=== PATIENT | female | born 1965 | race American Indian/Alaskan Native ===

== ENCOUNTER 2016-09-01 07:36 | Outpatient (CLI) | payer BC ==
--- NOTE | 2016-09-01 10:07 | Echocardiography Report ---
Transthoracic Echocardiogram Indication: Palpitations BP: 97/67 HR: 75 Findings Procedure Info: The study quality is fair. Left Ventricle: The left ventricular chamber size is normal. Mild concentric left ventricular hypertrophy is observed. Global left ventricular wall motion and contractility are within normal limits. Global left ventricular systolic function is normal. The estimated ejection fraction is 55-60%. Abnormal left ventricular diastolic function is observed. Abnormal left ventricular diastolic filling is observed, consistent with impaired relaxation. Left Atrium: The left atrial chamber size is normal. Right Ventricle: The right ventricular cavity size is normal. The right ventricular global systolic function is normal. Right Atrium: The right atrial cavity size is normal. Aortic Valve: The aortic valve is trileaflet. The aortic valve leaflets are mildly thickened. Systolic excursion of the aortic valve is normal. There is no evidence of aortic regurgitation. There is no evidence of aortic stenosis. Mitral Valve: The mitral valve is not well visualized. The mitral valve leaflets appear myxomatous. The mitral valve leaflets are mildly thickened. There is trace of mitral regurgitation. There is no evidence of mitral stenosis. Tricuspid Valve: The tricuspid valve is not well visualized. There is trace tricuspid regurgitation. No pulmonary hypertension is noted. There is no tricuspid stenosis. Pulmonic Valve: The pulmonic valve is not well visualized. There is mild pulmonic regurgitation. There is no pulmonic stenosis. Pericardium: There is no pericardial effusion. No pleural effusion is present. Aorta: There is no dilatation of the ascending aorta. There is no dilatation of the aortic root. Venous: The inferior vena cava appears normal in size. There is a greater than 50% respiratory change in the inferior vena cava dimension. Measurements Chambers 2D Name Value Normal Range IVSd (2D) 0.93 cm (0.6 - 1.1) LVPWd 1 cm - LVPWd (2D) 1 cm (0.6 - 1.1) IVS:LVPW ratio (2D) 0.93 ratio - LVIDd 4.2 cm - LVIDs 3 cm - LVIDd (2D) 4.24 cm (3.7 - 5.6) LVIDs (2D) 3.02 cm (2 - 3.8) LV FS (Teichholz) (2D) 28.8 % - LV FS (cube) (2D) 28.8 % - LV EF (2D) 55 % - EF Teichholz (2D) 55.7 % - LA dimension 3.4 cm - Ao root diameter (2D) 2.6 cm (2 - 3.7) LA dimension (AP) 2D 3.4 cm (1.9 - 4) LA:Ao ratio (2D) 1.31 ratio - Volumes/Mass Name Value Normal Range LA ESV SP 4CH (MOD) 36 ml - LV EDV SP 4CH (MOD) 90 ml - LV ESV SP 4CH (MOD) 35 ml - EF SP 4CH (MOD) 61 % - Diastolic/Systolic Function Name Value Normal Range MV E-wave Vmax 0.55 m/sec - MV deceleration time 261 msec - MV A-wave Vmax 0.77 m/sec - MV E:A ratio 0.7 ratio - LV septal e' Vmax 0.09 m/sec - LV lateral e' Vmax 0.12 m/sec - LV E:e' septal ratio 6.4 ratio - LV E:e' lateral ratio 4.5 ratio - Aortic Valve Name Value Normal Range AV Vmax 1.57 m/sec - AV peak gradient 10 mmHg - LVOT diameter 1.8 cm - LVOT Vmax 1 m/sec - LVOT peak gradient 4 mmHg - BUD (continuity Vmax) 1.61 cm2 - Tricuspid Valve Name Value Normal Range TR Vmax 2.01 m/sec - TR peak gradient 16 mmHg - Pulmonic Valve/Qp:Qs Name Value Normal Range PV Vmax 0.78 m/sec - PV peak gradient 2 mmHg - MT end-diastolic Vmax 0.72 m/sec - PV acceleration time 166 msec -
--- NOTE | 2016-09-01 13:18 | Treadmill Report ---
The patient exercised for 8 minutes and 30 seconds of a Toñito protocol, reaching stage 3 and achieving 9.5 mets. Peak heart rate was 146 beats per minute. Peak blood pressure was 152/82. There was no chest pain. Test was stopped for fatigue. Baseline ECG was normal sinus rhythm. With exercise, there were no ST changes of ischemia. No significant dysrhythmias were noted. CONCLUSION: 1. Very good exercise capacity. 2. No chest pain. 3. No ST changes of ischemia. 4. No significant dysrhythmias. 5. Normal exercise ECG test. JOB# [id number] CA/NTS
== END 2016-09-01 07:37 | disposition home or self-care (01) ==
LOC: CARD 07:36
PROVIDERS: ATTEND Internal Medicine Cardiovascular Disease
DX: R00.2 Palpitations (principal)
CPT/HCPCS: 93017; 93306

== ENCOUNTER 2017-04-05 12:50 | Outpatient (CLI) | payer BC ==
--- NOTE | 2017-04-06 17:07 | Vascular Lab Report ---
Left Lower Extremity Venous Duplex Study: Reason for Exam: Pain and swelling of the left lower extremity. Comments on the Right: A limited duplex study was done of the proximal veins of the right lower extremity. All veins visualized are freely compressible without evidence of internal echogenicity. Flow is spontaneous and phasic throughout. No evidence of acute or chronic thrombus is seen in any of the vessels visualized. Comments on the Left: All veins visualized are freely compressible without evidence of internal echogenicity. Flow is spontaneous and phasic throughout. No evidence of acute or chronic thrombus is seen in any of the vessels visualized. Superficial thrombophlebitis noted in the distal greater saphenous vein. Impression: No evidence of acute or chronic deep venous thrombosis in the left lower extremity. Superficial thrombophlebitis in the left lower extremity
== END 2017-04-05 12:51 | disposition home or self-care (01) ==
LOC: VAS 12:50
PROVIDERS: ATTEND Physician Assistant Medical
DX: I80.02 Phlebitis and thrombophlebitis of superficial vessels of left lower extremity (principal)

== ENCOUNTER 2017-04-17 10:21 | Outpatient (CLI) | payer BC ==
--- NOTE | 2017-04-17 11:18 | Cat Scan Report ---
CT CHEST WITHOUT CONTRAST: HISTORY: Chronic cough. TECHNIQUE: Helical CT with sagittal and coronal reformatted images. FINDINGS: Heart size is normal. There is no evidence of adenopathy within the mediastinum. Pulmonary jocelynn are free of any mass and the lungs are clear of infiltrates. The pleura is unremarkable. No masses involve the chest wall. No abnormalities are noted within the upper abdomen. The adrenal glands are normal. IMPRESSION: Unremarkable noncontrast CT chest.
== END 2017-04-17 10:22 | disposition home or self-care (01) ==
LOC: CT 10:21
DX: R05 Cough (principal)
CPT/HCPCS: 71250

== ENCOUNTER 2017-05-31 10:11 | Outpatient (CLI) | payer BC ==
--- NOTE | 2017-05-31 11:13 | Cat Scan Report ---
CT scan of head without IV contrast: History: Recurrent headaches. Findings: Ventricles are normal in size and midline in location. No evidence of acute ischemia, hemorrhage or mass. No extra-axial fluid collection. Normal brainstem and cerebellum. Impression: No acute intracranial abnormality.
== END 2017-05-31 10:12 | disposition home or self-care (01) ==
LOC: CT 10:11
PROVIDERS: ATTEND Internal Medicine
DX: R51 Headache (principal)
CPT/HCPCS: 70450

== ENCOUNTER 2017-07-12 06:06 | Inpatient (IN) | payer BC ==
[2017-07-12 07:38] LABS: Eosinophils % (Auto) 4.7 % (0.0-4.3); Hematocrit 39.2 % (30.3-42.9); Hemoglobin 13.2 gm/dl (10.1-14.3); Mean Corpuscular HGB Conc 34 % (30-34); Mean Corpuscular Hemoglobin 27 pg (28-32); Mean Corpuscular Volume 80 fl (79-97); Platelet Count 303 K/mm3 (140-440); Red Blood Count 4.89 M/mm3 (3.65-5.03); Red Cell Distribution Width 14.7 % (13.2-15.2); White Blood Count 8.1 K/mm3 (4.5-11.0)
[2017-07-12 07:49] LABS: Bilirubin,Urine NEG (Negative); Blood,Urine NEG (Negative); Ketones,Urine NEG (Negative); Leukocyte Esterase,Urine NEG (Negative); Mucus,Urine FEW /HPF; Nitrite,Urine NEG (Negative); Protein,Urine <15 mg/dL mg/dL (Negative); Urobilinogen,Urine < 2.0 mg/dL (<2.0); WBC,Urine < 1.0 /HPF (0.0-6.0)
[2017-07-12 07:50] LABS: Anion Gap 18 mmol/L; BUN/Creatinine Ratio 15; Blood Urea Nitrogen 12 mg/dL (7-17); Calcium 9.1 mg/dL (8.4-10.2); Carbon Dioxide 24 mmol/L (22-30); Glucose 101 mg/dL (65-100); Sodium 139 mmol/L (137-145)
--- NOTE | 2017-07-12 07:58 | Cat Scan Report ---
CT HEAD WITHOUT CONTRAST: HISTORY: Headache. TECHNIQUE: Sequential 2.5mm CT images. COMPARISON: none. FINDINGS: Cerebral Parenchyma: Within normal limits. Cerebellum: Within normal limits. Brainstem: Within normal limits. Ventricles: Normal. Sella: Normal. Extra-axial spaces: Normal. Basal Cisterns: Normal. Intracranial Hemorrhage: None. Midline Shift: None. Calvarium: Normal. Sinuses: Normal. Mastoid Air Cells: Normal. Visualized Orbits: Normal. IMPRESSION: Cranial CT scan within normal limits. No significant change since 05/31/17.
[2017-07-12] MEDS ORDERED: BABY ASPIRIN PO ONE (10:26)
--- NOTE | 2017-07-12 10:26 | Emergency Department Report ---
ED General Adult HPI - General Chief complaint: Chest Pain Stated complaint: POSSIBLE HTN Time Seen by Provider: 07/12/17 10:18 Source: patient, RN notes reviewed Mode of arrival: Ambulatory Limitations: No Limitations - History of Present Illness Initial comments: This is a 52-year-old female who was previously unknown to this provider. She thinks that she might have a past medical history of hypertension but is not certain. She presents to the ER with 2 complaints. Her first complaint is left-sided chest wall pain. The pain is achy, increases with palpation and range of motion. It decreases with rest. There is no vomiting, diaphoresis. No pulmonary embolus or DVT risk factors. The patient's next complaint is left-sided facial droop, left upper extremity weakness/numbness. This resolved prior to my evaluation. She also complains of left-sided headache. Headache is throbbing, not sudden or thunderclap in nature, did not reach maximal intensity within an hour, it is not the worse headache of her life. -: Gradual Location: head, chest Radiation: extremity Severity scale (0 -10): 7 Consistency: intermittent Improves with: none Worsens with: none Associated Symptoms: chest pain, headaches. denies: confusion - Related Data Home Medications Medication Instructions Recorded Confirmed Last Taken Metoprolol [Lopressor TAB] 50 mg PO BID 07/12/17 07/12/17 07/12/17 Multivitamin with Folic Acid [One 400 mcg PO DAILY 07/12/17 07/12/17 07/12/17 Daily Multivitamin Tablet] Allergies Allergy/AdvReac Type Severity Reaction Status Date / Time No Known Allergies Allergy Verified 07/12/17 10:18 ED Review of Systems ROS: Stated complaint: POSSIBLE HTN Other details as noted in HPI Constitutional: denies: malaise Eyes: denies: eye discharge ENT: denies: epistaxis Respiratory: denies: cough Cardiovascular: chest pain Gastrointestinal: denies: abdominal pain Genitourinary: as per HPI Skin: as per HPI Neurological: headache, numbness Psychiatric: as per HPI ED Past Medical Hx - Past Medical History Hx Hypertension: Yes Hx Diabetes: Yes Hx Kidney Stones: Yes - Surgical History Past Surgical History?: Yes Additional Surgical History: TUBALIGATION - Social History Smoking Status: Never Smoker Substance Use Type: None - Medications Home Medications: Home Medications Medication Instructions Recorded Confirmed Last Taken Type Metoprolol [Lopressor TAB] 50 mg PO BID 07/12/17 07/12/17 07/12/17 History Multivitamin with Folic Acid [One 400 mcg PO DAILY 07/12/17 07/12/17 07/12/17 History Daily Multivitamin Tablet] ED Physical Exam - General Limitations: No Limitations General appearance: alert, in no apparent distress - Head Head exam: Present: atraumatic, normocephalic - Eye Eye exam: Present: normal appearance, PERRL, EOMI, other (visual acuity intact to finger counting, color perception, reading at a close distance). Absent: nystagmus - ENT ENT exam: Present: normal exam, normal orophraynx, mucous membranes moist, normal external ear exam - Neck Neck exam: Present: normal inspection, full ROM. Absent: tenderness, meningismus, lymphadenopathy - Respiratory Respiratory exam: Present: normal lung sounds bilaterally. Absent: respiratory distress - Cardiovascular Cardiovascular Exam: Present: regular rate, normal rhythm, normal heart sounds. Absent: systolic murmur, diastolic murmur, rubs, gallop - GI/Abdominal GI/Abdominal exam: Present: soft, normal bowel sounds. Absent: distended, tenderness, guarding, rebound, rigid, pulsatile mass - Extremities Exam Extremities exam: Present: normal inspection, full ROM, normal capillary refill. Absent: pedal edema, joint swelling, calf tenderness - Back Exam Back exam: Present: normal inspection, full ROM. Absent: tenderness, CVA tenderness (R), paraspinal tenderness, vertebral tenderness - Neurological Exam Neurological exam: Present: alert, oriented X3, CN II-XII intact, normal gait, other (Extraocular movements intact. Tongue midline. No facial droop. Facial sensation intact to light touch in the V1, V2, V3 distribution bilaterally. 5 and 5 strength in 4 extremities.. Sensation is intact to light touch in 4 extremities.). Absent: motor sensory deficit - Psychiatric Psychiatric exam: Present: normal affect, normal mood - Skin Skin exam: Present: warm, dry, intact, normal color. Absent: rash ED Course Vital Signs 07/12/17 07/12/17 07/12/17 06:11 06:16 10:22 Temperature 98 F 98 F Pulse Rate 82 82 78 Respiratory 18 18 16 Rate Blood Pressure 156/94 Blood Pressure 156/94 135/81 [Right] O2 Sat by Pulse 100 100 96 Oximetry 12/06/17 12/06/17 11:39 13:28 Temperature Pulse Rate 76 67 Respiratory 16 16 Rate Blood Pressure Blood Pressure 142/82 125/87 [Right] O2 Sat by Pulse 95 100 Oximetry ED Medical Decision Making - Lab Data Result diagrams: 07/12/17 07:23 07/12/17 07:20 Vital Signs 07/12/17 07/12/17 07/12/17 06:11 06:16 10:22 Temperature 98 F 98 F Pulse Rate 82 82 78 Respiratory 18 18 16 Rate Blood Pressure 156/94 Blood Pressure 156/94 135/81 [Right] O2 Sat by Pulse 100 100 96 Oximetry 07/12/17 07/12/17 11:39 13:28 Temperature Pulse Rate 76 67 Respiratory 16 16 Rate Blood Pressure Blood Pressure 142/82 125/87 [Right] O2 Sat by Pulse 95 100 Oximetry Lab Results 07/12/17 07/12/17 07/12/17 Range/Units 07:19 07:20 07:23 WBC 8.1 (4.5-11.0) K/mm3 RBC 4.89 (3.65-5.03) M/mm3 Hgb 13.2 (10.1-14.3) gm/dl Hct 39.2 (30.3-42.9) % MCV 80 (79-97) fl MCH 27 L (28-32) pg MCHC 34 (30-34) % RDW 14.7 (13.2-15.2) % Plt Count 303 (140-440) K/mm3 Lymph % (Auto) 31.7 (13.4-35.0) % [place] % (Auto) 6.5 (0.0-7.3) % Eos % (Auto) 4.7 H (0.0-4.3) % Baso % (Auto) 1.0 (0.0-1.8) % Lymph # 2.6 (1.2-5.4) K/mm3 [place] # 0.5 (0.0-0.8) K/mm3 Eos # 0.4 (0.0-0.4) K/mm3 Baso # 0.1 (0.0-0.1) K/mm3 Seg Neutrophils % 56.1 (40.0-70.0) % Seg Neutrophils # 4.5 (1.8-7.7) K/mm3 Sodium 139 (137-145) mmol/L Potassium 4.0 (3.6-5.0) mmol/L Chloride 101.0 (98-107) mmol/L Carbon Dioxide 24 (22-30) mmol/L Anion Gap 18 mmol/L BUN 12 (7-17) mg/dL Creatinine 0.8 (0.7-1.2) mg/dL Estimated GFR > 60 ml/min BUN/Creatinine Ratio 15 % Glucose 101 H (65-100) mg/dL Calcium 9.1 (8.4-10.2) mg/dL Troponin T < 0.010 (0.00-0.029) ng/mL Urine Color Yellow (Yellow) Urine Turbidity Clear (Clear) Urine pH 6.0 (5.0-7.0) Ur Specific [place] 1.008 (1.003-1.030) Urine Protein <15 mg/dl (Negative) mg/dL Urine Glucose (UA) Neg (Negative) mg/dL Urine Ketones Neg (Negative) mg/dL Urine Blood Neg (Negative) Urine Nitrite Neg (Negative) Urine Bilirubin Neg (Negative) Urine Urobilinogen < 2.0 (<2.0) mg/dL Ur Leukocyte Esterase Neg (Negative) Urine WBC (Auto) < 1.0 (0.0-6.0) /HPF Urine RBC (Auto) 1.0 (0.0-6.0) /HPF U Epithel Cells (Auto) 2.0 (0-13.0) /HPF Urine Mucus Few /HPF 07/12/17 07/12/17 Range/Units 09:33 13:18 WBC (4.5-11.0) K/mm3 RBC (3.65-5.03) M/mm3 Hgb (10.1-14.3) gm/dl Hct (30.3-42.9) % MCV (79-97) fl MCH (28-32) pg MCHC (30-34) % RDW (13.2-15.2) % Plt Count (140-440) K/mm3 Lymph % (Auto) (13.4-35.0) % [place] % (Auto) (0.0-7.3) % Eos % (Auto) (0.0-4.3) % Baso % (Auto) (0.0-1.8) % Lymph # (1.2-5.4) K/mm3 [place] # (0.0-0.8) K/mm3 Eos # (0.0-0.4) K/mm3 Baso # (0.0-0.1) K/mm3 Seg Neutrophils % (40.0-70.0) % Seg Neutrophils # (1.8-7.7) K/mm3 Sodium (137-145) mmol/L Potassium (3.6-5.0) mmol/L Chloride (98-107) mmol/L Carbon Dioxide (22-30) mmol/L Anion Gap mmol/L BUN (7-17) mg/dL Creatinine (0.7-1.2) mg/dL Estimated GFR ml/min BUN/Creatinine Ratio % Glucose (65-100) mg/dL Calcium (8.4-10.2) mg/dL Troponin T < 0.010 < 0.010 (0.00-0.029) ng/mL Urine Color (Yellow) Urine Turbidity (Clear) Urine pH (5.0-7.0) Ur Specific [place] (1.003-1.030) Urine Protein (Negative) mg/dL Urine Glucose (UA) (Negative) mg/dL Urine Ketones (Negative) mg/dL Urine Blood (Negative) Urine Nitrite (Negative) Urine Bilirubin (Negative) Urine Urobilinogen (<2.0) mg/dL Ur Leukocyte Esterase (Negative) Urine WBC (Auto) (0.0-6.0) /HPF Urine RBC (Auto) (0.0-6.0) /HPF U Epithel Cells (Auto) (0-13.0) /HPF Urine Mucus /HPF - EKG Data -: EKG Interpreted by Co - EKG Data 07/12/17 14:13 Sinus, 72 bpm, normal axis, QTC within normal limits, possible atrial enlargement, MA slightly prolonged, abnormal EKG, not morphologically consistent with ST elevation myocardial infarction - Radiology Data Radiology results: report reviewed, image reviewed X-ray of the chest is negative for acute disease, noncontrast CT scan of the brain is Shows no acute findings. - Medical Decision Making Differential diagnosis, including but not limited to: Migraine headache, tension headache, cluster headache, acute coronary syndrome, cervical radiculopathy, pneumonia, GERD, gastritis Assessment and plan: 52-year-old female with neurologic symptoms which have since resolved, has an NIH score of 0 and a GCS of 15. Also has atypical chest pain. No pulmonary embolus or DVT risk factors, low risk by well's criteria, low risk by cornell score, low risk by heart score. Patient walking around the ER without distress, and speaking to family without distress. X-ray of the chest unremarkable, pulses within normal limits bilaterally, not especially hypertensive, therefore think aortic catastrophe is very unlikely. Patient will be admitted to the hospital for acute coronary syndrome risk stratification , and TIA evaluation. She is given aspirin, and the Hospital physician, Dr. Barnes accepted the patient to the medical service. Critical care attestation.: If time is entered above; I have spent that time in minutes in the direct care of this critically ill patient, excluding procedure time. ED Disposition Clinical Impression: TIA (transient ischemic attack), Chest pain Disposition: OP ADMIT IP TO THIS HOSP Is pt being admited?: Yes Does the pt Need Aspirin: Yes Condition: Good Instructions: Chest Pain (ED) Referrals: PRIMARY CARE, [Primary Care Provider] - 3-5 Days
--- NOTE | 2017-07-12 11:44 | XRay Report ---
AP CHEST: HISTORY: chest pain AP view of the chest demonstrates a normal mediastinal and cardiac contour with clear lungs and normal bony and soft tissue structures. IMPRESSION: Unremarkable AP chest.
--- NOTE | 2017-07-12 13:22 | History and Physical Report ---
History of Present Illness Chief complaint: My chest hurts History of present illness: 52 YO Female with HTN, DM, MO, Nephrolithiasis presents to ED for evaluation. Pt states that she has experienced pain in her chest. Pain is 7/10, substernal, intermittent, worsened with chest palpation and range of motion, not worsened with exertion, but is relieved with rest. Pt also states that when she awoke from sleep this morning, the left side of her face felt numb, and her left arm felt weak and numb. Pt also acknowledges left sided headache. Pt states that symptoms resolved in less than 1 hour. Pt denies fever, chills, Palpitations, NVD, syncope,Trauma, Seizures, Vertigo, BRBPR, Skin Rash, productive cough, unintentional weight loss, night sweats, or recent ill contacts. Pt seen and evaluated in ED and found to have symptoms consistent with ACS as well as TIA. Pt admitted to telemetry. Past History Past Medical History: diabetes, hypertension, other (Nephrolithiasis, Morbid Obesity) Past Surgical History: Other (tubal ligation) Social history: . denies: smoking, alcohol abuse, prescription drug abuse, IV drug use Family history: diabetes, hypertension Medications and Allergies Allergies Allergy/AdvReac Type Severity Reaction Status Date / Time No Known Allergies Allergy Verified 07/12/17 10:18 Home Medications Medication Instructions Recorded Confirmed Last Taken Type Metoprolol [Lopressor TAB] 50 mg PO BID 07/12/17 07/12/17 07/12/17 History Multivitamin with Folic Acid [One 400 mcg PO DAILY 07/12/17 07/12/17 07/12/17 History Daily Multivitamin Tablet] Review of Systems Constitutional: no weight loss, no weight gain, no fever, no chills, no sweats Ears, nose, mouth and throat: no ear pain, no ear discharge, no tinnitis, no decreased hearing, no nose pain, no nasal congestion, no nasal discharge Breasts: no change in shape, no swelling, no mass Cardiovascular: chest pain, no palpitations, no rapid/irregular heart beat, no edema, no syncope Respiratory: no cough, no cough with sputum, no excessive sputum, no hemoptysis Gastrointestinal: no abdominal pain, no nausea, no vomiting, no diarrhea Genitourinary Female: no pelvic pain, no flank pain, no dysuria, no urinary frequency, no urgency Rectal: no pain, no incontinence, no bleeding Musculoskeletal: no neck stiffness, no neck pain, no shooting arm pain, no arm numbness/tingling, no low back pain, no shooting leg pain Integumentary: no rash, no pruritis, no redness, no sores, no jaundice, no boils Neurological: paralysis, weakness, parathesias, numbness, no head injury, no transient paralysis, no seizures, no syncope, no tremors, no ataxia Psychiatric: no anxiety, no memory loss, no change in sleep habits, no sleep disturbances, no insomnia, no hypersomnia, no change in appetite Endocrine: no cold intolerance, no heat intolerance, no polyphagia, no excessive thirst, no polydipsia, no nocturia Hematologic/Lymphatic: no easy bruising, no easy bleeding Allergic/Immunologic: no urticaria, no allergic rhinitis, no wheezing Exam - Constitutional Vitals: Temp Pulse Resp BP Pulse Ox 98 F 76 16 142/82 95 07/12/17 06:16 07/12/17 11:39 07/12/17 11:39 07/12/17 11:39 07/12/17 11:39 General appearance: Present: mild distress, obese - EENT Eyes: Present: PERRL ENT: hearing intact, clear oral mucosa - Neck Neck: Present: supple, normal ROM - Respiratory Respiratory effort: normal Respiratory: bilateral: CTA - Cardiovascular Heart Sounds: Present: S1 & S2. Absent: rub, click - Extremities Extremities: pulses symmetrical, No edema Peripheral Pulses: within normal limits - Abdominal General gastrointestinal: Present: soft, non-tender, non-distended, normal bowel sounds Female genitourinary: Present: normal - Integumentary Integumentary: Present: clear, warm, dry - Musculoskeletal Musculoskeletal: gait normal, strength equal bilaterally - Psychiatric Psychiatric: appropriate mood/affect, intact judgment & insight - Neurologic Neurologic: CNII-XII intact, moves all extremities Results - Labs CBC & Chem 7: 07/12/17 07:23 07/12/17 13:18 Labs: Abnormal lab results 07/12/17 07/12/17 Range/Units 07:20 07:23 MCH 27 L (28-32) pg Eos % (Auto) 4.7 H (0.0-4.3) % Glucose 101 H (65-100) mg/dL Assessment and Plan - Patient Problems (1) ACS (acute coronary syndrome) Current Visit: Yes Status: Acute Plan to address problem: Serial cardiac enzymes, ekg, telemetry, morphine, supplemental oxygen, nitro tabs, aspirin, cardiology consulted, Pt underwent Echo and stress test in 08/23. (2) Metabolic syndrome Current Visit: Yes Status: Acute Plan to address problem: Lipid panel, low cholesterol diet, (3) Diabetes Current Visit: Yes Status: Acute Plan to address problem: ADA diet, insulin, accu check (4) Accelerated hypertension Current Visit: Yes Status: Acute Plan to address problem: Monitor bp q shift, continue medical management (5) TIA (transient ischemic attack) Current Visit: Yes Status: Acute Plan to address problem: CT Head, MRI Brain, MRA Brain, antiplatelet therapy. (6) DVT prophylaxis Current Visit: Yes Status: Acute
[2017-07-12] MEDS ORDERED: ZOFRAN IV PRN ×2 (13:25→15:46)
[2017-07-12] MEDS ORDERED: MILK OF MAGNESIA PO PRN ×2 (13:25→15:46)
[2017-07-12] MEDS ORDERED: TYLENOL PO PRN ×2 (13:25→15:46)
[2017-07-12] MEDS ORDERED: SODIUM CHLORIDE FLUSH SYRINGE 10 ML IV PRN ×2 (13:25→15:46)
[2017-07-12] MEDS ORDERED: DULCOLAX PR PRN ×2 (13:25→15:46)
[2017-07-12] MEDS ORDERED: MORPHINE IV PRN (13:25)
[2017-07-12] MEDS ORDERED: NITROSTAT SL PRN (13:25)
[2017-07-12] MEDS ORDERED: PROVENTIL IH PRN (13:25)
[2017-07-12 14:27] LABS: Anion Gap 18 mmol/L; BUN/Creatinine Ratio 19; Blood Urea Nitrogen 13 mg/dL (7-17); Calcium 8.9 mg/dL (8.4-10.2); Carbon Dioxide 26 mmol/L (22-30); Chloride 100.5 mmol/L (98-107); Glucose 93 mg/dL (65-100); Potassium 3.9 mmol/L (3.6-5.0); Sodium 141 mmol/L (137-145)
[2017-07-12] MEDS ORDERED: PHENERGAN PR PRN (15:46)
[2017-07-12] MEDS ORDERED: REGLAN PO PRN (15:46)
[2017-07-12] MEDS ORDERED: PEPCID PO SCH (22:00)
[2017-07-12] MEDS ORDERED: LOPRESSOR PO SCH (22:00)
[2017-07-13] MEDS ORDERED: PNEUMOVAX 23 IM ONE (12:00)
--- NOTE | 2017-07-13 12:55 | Magnetic Resonance Report ---
MRI BRAIN WITHOUT CONTRAST: 07/12/17 13:25:00 CLINICAL: Stroke. TECHNIQUE: Axial diffusion, T1, T2, FLAIR, gradient echo T2*, and sagittal T1 sequences on a 1.5 Jeri magnet. FINDINGS: Normal ventricles and sulci. No restricted diffusion. Moderate bilateral periventricular and subcortical multifocal white matter hyperintensities on FLAIR and T2. No mass or mass effect. No hemorrhage, edema or extra-axial collection. Normal pituitary and optic chiasm. The brainstem and cerebellum are normal. Intact vascular flow voids. Normal sinuses. The orbits, and soft tissues are normal. Normal calvarium and skull base. IMPRESSION: No evidence of acute/subacute infarct or hemorrhage. Moderate chronic white matter microangiopathy.
--- NOTE | 2017-07-13 12:57 | Magnetic Resonance Report ---
MRA HEAD WITHOUT CONTRAST: 07/13/17 CLINICAL: Stroke. TECHNIQUE: Axial 3-D [id number] MR angiography of the [place] of [place] with review of axial source images. FINDINGS: Intact [place] with no aneurysm, stenosis or occlusion. Symmetric blood flow in the anterior, middle and posterior cerebral arteries. Normal basilar and vertebral arteries. IMPRESSION: Normal study.
--- NOTE | 2017-07-13 15:35 | Discharge Summary ---
Providers - Providers Date of Admission: 07/12/17 13:25 Date of discharge: 07/13/17 Attending physician: CURT ORELLANA 07/12/17 Consult to Cardiac Rehabilitation [CONS] Routine Reason For Exam: Phase I 07/12/17 13:25 Consult to Cardiology [CONS] Routine Consulting Provider: SHARONDA SILVERIO Reason For Exam: acs 07/12/17 15:47 Occupational Therapy Evaluate and Treat [CONS] Routine Comment: Reason For Exam: Neuro deficits Physical Therapy Evaluation and Treat [CONS] Routine Comment: Reason For Exam: Neuro deficits Speech Therapy Evaluation and Treat [CONS] Routine Reason For Exam: swallow eval Primary care physician: ESL TEACHER Hospitalization Condition: Stable Hospital course: Patient is a 52 yo woman with a history of hypertension and dlp(diet controlled ) but no DM who presented with left arm weakness and numbness which has resolved. CT head negative, cxr NAF, unremarkable us carotid. -TIA -Chest pain atypical, palpitation most likely -HTN -Dyslipidemia -Morbid obesity, bmi 42.2 per Cardiology, Dr. Silverio: "Hypertension normal head CT normal ECG normal TMT 08/2016 EF 55-60% on echo 08/2016 Hx of palpitations on metoprolol as an outpatient We will recommend diovan for hypertension management. Continue beta blockers for suppression of palpitations. Ok for discharge home today. Patient will f/u with [facility] within 1 week. " Disposition: - TO HOME OR SELFCARE Time spent for discharge: 35 minutes Core Measure Documentation - Palliative Care Palliative Care/ Comfort Measures: Not Applicable - Core Measures Any of the following diagnoses?: none - VTE Discharge Requirements Deep Vein Thrombosis/Pulmonary Embolism Present on Admission: No Has pt received <5 days of overlap therapy or INR<2.0: No Anticoagulant overlap therapy prescribed at discharge: No Contraindication No Overlap Therapy order at DC: Not Indicated Exam - Physical Exam Narrative exam: GEN: WDWN, NAD, AWAKE, ALERT, ORIENTATED x3 HEENT: NCAT, EOMI, PERRL, OP Clear NECK: supple, no adenopathy, no thyromegaly, no JVD CVS/HEART: RRR, NORMAL S1S2, NO JVD, pulses present bilaterally CHEST/LUNGS: CTA B, Symmetrical chest expansion, good air entry bilaterally GI/Abdomen: soft, NTND, good bowel sounds, no guarding or rebound /Bladder: no suprapubic tenderness, no CVA or paraspinal tenderness EXT/Skin: no c/c/e, no obvious rash MSK: FROM x 4 Neuro: CN 2-12 grossly intact, no new focal deficits Psych: calm - Constitutional Vitals: Temp Pulse Resp BP Pulse Ox 97.6 F 90 20 145/83 99 07/13/17 13:12 07/13/17 13:12 07/13/17 13:12 07/13/17 13:12 07/13/17 13:12 Plan Activity: other (no strenous activity until cleared by Cardiology) Diet: low salt Follow up with: [facility] [place] [Provider Group] - 7 Days SHARONDA SILVERIO MD [Staff Physician] - 7 Days Prescriptions: Rosuvastatin (Nf) [Crestor] 10 mg PO QHS #30 tablet RX: Aspirin [Aspir-Low] 81 mg PO DAILY #30 tablet. Valsartan [Diovan] 80 mg PO DAILY #30 tablet
--- NOTE | 2017-07-13 15:45 | Consultation ---
History of Present Illness Consult date: 07/13/17 Consult reason: chest pain, hypertension History of present illness: 52yr old woman who reports a history of palpitations for which she takes metoprolol for suppression, presents with complaints of an elevated blood pressure. Patient reports while at work, she had a blood pressure reading of 178 /91 which prompted an ER visit. On initial workup, a repeat blood pressure was 156/94. A head CT scan was normal. A 12 lead ECG was also normal. Cardiology consultation was requested. Past History Past Surgical History: Other (tubal ligation) Social history: . denies: smoking, alcohol abuse, prescription drug abuse, IV drug use Family history: diabetes, hypertension Medications and Allergies Allergies Allergy/AdvReac Type Severity Reaction Status Date / Time No Known Allergies Allergy Verified 07/12/17 10:18 Home Medications Medication Instructions Recorded Confirmed Last Taken Type Metoprolol [Lopressor TAB] 50 mg PO BID 07/12/17 07/12/17 07/12/17 History Multivitamin with Folic Acid [One 400 mcg PO DAILY 07/12/17 07/12/17 07/12/17 History Daily Multivitamin Tablet] Active Meds: Active Medications Acetaminophen (Tylenol) 650 mg PO Q4H PRN PRN Reason: Pain MILD(1-3)/Fever >100.5/ABEBE Acetaminophen (Tylenol) 650 mg PO Q4H PRN PRN Reason: Pain, Mild (1-3) Albuterol (Proventil) 2.5 mg IH Q4HRT PRN PRN Reason: Shortness Of Breath Bisacodyl (Dulcolax) 10 mg UT QDAY PRN PRN Reason: Constipation unrelieved by MOM Bisacodyl (Dulcolax) 10 mg UT QDAY PRN PRN Reason: Constipation Famotidine (Pepcid) 10 mg PO BID [facility] Last Admin: 07/12/17 21:40 Dose: 10 mg Magnesium Hydroxide (Milk Of Magnesia) 30 ml PO Q4H PRN PRN Reason: Constipation Magnesium Hydroxide (Milk Of Magnesia) 30 ml PO Q4H PRN PRN Reason: Constipation Metoclopramide HCl (Reglan) 10 mg PO Q6H PRN PRN Reason: Nausea And Vomiting Metoprolol Tartrate (Lopressor) 50 mg PO BID [facility] Last Admin: 07/12/17 21:40 Dose: Not Given Morphine Sulfate (Morphine) 2 mg IV Q4H PRN PRN Reason: Pain, Moderate (4-6) Nitroglycerin (Nitrostat) 0.4 mg SL Q5M PRN PRN Reason: Chest Pain Ondansetron HCl (Zofran) 4 mg IV Q8H PRN PRN Reason: N/V unrelieved by Reglan Ondansetron HCl (Zofran) 4 mg IV Q8H PRN PRN Reason: N/V unrelieved by Reglan Promethazine HCl (Phenergan) 25 mg UT Q6H PRN PRN Reason: Nausea And Vomiting Sodium Chloride (Sodium Chloride Flush Syringe 10 Ml) 10 ml IV PRN PRN PRN Reason: LINE FLUSH Sodium Chloride (Sodium Chloride Flush Syringe 10 Ml) 10 ml IV PRN PRN PRN Reason: LINE FLUSH Physical Examination Vital Signs Pulse BP Pulse Ox 85 156/94 99 07/12/17 06:07 07/12/17 06:07 07/12/17 06:07 General appearance: no acute distress, obese HEENT: Positive: PERRL Neck: Positive: trachea midline Cardiac: Positive: Reg Rate and Rhythm Lungs: Positive: Decreased Breath Sounds Neuro: Positive: Grossly Intact Extremities: Absent: edema Results 07/12/17 07:23 07/12/17 13:18 Assessment and Plan Hypertension normal head CT normal ECG normal TMT 08/2016 EF 55-60% on echo 08/2016 Hx of palpitations on metoprolol as an outpatient We will recommend heriberto for hypertension management. Continue beta blockers for suppression of palpitations. Ok for discharge home today. Patient will f/u with [facility] within 1 week.
[2017-07-13] MEDS ORDERED: DIOVAN PO SCH (16:00)
[2017-07-13 17:16] VITALS: BP 146/87
--- NOTE | 2017-07-17 07:17 | Vascular Lab Report ---
CAROTID DUPLEX STUDY: RIGHT PSVEDV CCA PROX:[id number] CCA DIST:[id number] ICA PROX:9330 ICA MID:8637 ICA DIST:[id number] ECA: 170 VERT: 52 18 LEFT PSVEDV CCA PROX:[id number] CCA DIST:9928 ICA PROX:54350 ICA MID:51969 ICA DIST:38554 ECA: 158 VERT: 50 19 REASON FOR EXAM: Stroke. COMMENTS ON THE RIGHT: Doppler frequency analysis is consistent with 16 to 49 percent diameter reduction of the internal carotid artery. Minimal amount of plaque is seen. The common carotid artery is patent. The external carotid artery is patent. The vertebral artery has antegrade flow. COMMENTS ON THE LEFT: Doppler frequency analysis is consistent with 16 to 49 percent diameter reduction of the internal carotid artery. Minimal amount of plaque is seen. The common carotid artery is patent. The external carotid artery is patent. The vertebral artery has antegrade flow. IMPRESSION: Less than 50% diameter reduction in the internal carotid arteries bilaterally. Consider repeat carotid artery duplex in 12 months.
== END 2017-07-13 17:54 | disposition home or self-care (01) | DRG 69 ==
LOC: ED 06:06 → 4A 13:25
PROVIDERS: ADMIT Internal Medicine; ATTEND Internal Medicine
PROC: 3E0234Z Introduction of Serum, Toxoid and Vaccine into Muscle, Percutaneous Approach (ICD-10-PCS; principal; 2017-07-13)
DX: G45.9 Transient cerebral ischemic attack, unspecified (principal); I24.9 Acute ischemic heart disease, unspecified; Z68.41 Body mass index [BMI] 40.0-44.9, adult; E11.9 Type 2 diabetes mellitus without complications; E88.81 Metabolic syndrome and other insulin resistance; I10 Essential (primary) hypertension; R29.810 Facial weakness; N20.0 Calculus of kidney; E66.01 Morbid (severe) obesity due to excess calories; R00.2 Palpitations; Z23 Encounter for immunization
CPT/HCPCS: 36415; 70450; 70544; 70551; 71010; 80048; 80061; 81001; 83036; 84484; 85025; 90732; 93005; 93010; 93880; 99285

== ENCOUNTER 2018-08-24 11:26 | Outpatient (CLI) | payer BC ==
--- NOTE | 2018-08-24 14:06 | XRay Report ---
KNEES STANDING AP BILATERAL History: Pain in unspecified knee. Findings: Normal bone mineralization. AP standing views of both knees were obtained. The bony structures are intact. The joint spaces appear normal and symmetric. The soft tissues are unremarkable. Impression: Normal exam.
== END 2018-08-24 11:27 | disposition home or self-care (01) ==
LOC: XRAY 11:26
PROVIDERS: ATTEND Orthopaedic Surgery
DX: M25.561 Pain in right knee (principal); M25.562 Pain in left knee; E11.9 Type 2 diabetes mellitus without complications; I10 Essential (primary) hypertension
CPT/HCPCS: 73565

== ENCOUNTER 2018-09-17 11:00 | Outpatient (CLI) | payer BC | END 2018-09-17 11:01 | disposition home or self-care (01) | LOC: SLR 11:00 | PROVIDERS: ATTEND Otolaryngology | DX: G47.33 Obstructive sleep apnea (adult) (pediatric) (principal); R40.0 Somnolence; R06.83 Snoring; E11.9 Type 2 diabetes mellitus without complications; I10 Essential (primary) hypertension | CPT/HCPCS: 95810 ==

== ENCOUNTER 2018-11-27 13:54 | Outpatient (CLI) | payer BC ==
--- NOTE | 2018-11-28 01:42 | Magnetic Resonance Report ---
PROCEDURE: MR LE JOINT LT WO CON TECHNIQUE: Coronal T1; sagittal proton density, T2 fat sat, gradient; axial T2 fat-saturated images were obtained of the left knee without contrast. Examination is significantly limited secondary to mcmillan boptimal coil selection due to patient body habitus. HISTORY: UNILATERAL PRIMARY OSTEOARTHRITIS, LEFT KNEE. COMPARISONS: Radiographs dated August 24, 2018. FINDINGS: Menisci: Evaluation significantly limited. There is intrasubstance signal within the posterior horn o f the medial meniscus which may surface inferiorly and fraying of the free edge. There is no displace d meniscal tissue or root tear. The lateral meniscus appears intact. Cruciate ligaments: Anterior and posterior cruciate ligament slope and morphology appears normal. Extensor mechanism: The patellar tendon and distal quadriceps tendons appear intact. Patellofemoral articulation: There is moderate grade articular cartilage loss of the central inferior trochlea with subjacent marrow edema pattern. Additional fissuring of the patellar median ridge mary cular cartilage. The patellofemoral retinacular complex appears intact. Collateral ligaments: Evaluation limited. The lateral supporting ligaments and tendons appear intact. The suggested thickening of the proximal medial collateral ligament, no discontinuity or definitive intrasubstance abnormal signal. Joint fluid: Moderate joint effusion with mild synovitis. There is no ossified intra-articular body i dentified. Medial/lateral compartment cartilage: There is mild generalized cartilage loss of the medial femoral condyle, no full thickness cartilage loss identified. Lateral compartment articular surfaces unremark able. IMPRESSION: 1. Examination is significantly limited secondary to patient body habitus. 2. Possible, chronic degenerative tear of the posterior horn medial meniscus; no displaced meniscal t issue identified. 3. Moderate patellofemoral compartment and mild medial compartment degenerative changes. 4. Moderate volume knee joint effusion with synovitis. 5. Mild thickening of the medial collateral ligament which may be secondary to chronic injury. This document is electronically signed by Pan Mclaughlin DO., November 28 2018 01:40:54 AM ET
== END 2018-11-27 13:55 | disposition home or self-care (01) ==
LOC: MRI 13:54
PROVIDERS: ATTEND Orthopaedic Surgery
DX: M17.12 Unilateral primary osteoarthritis, left knee (principal); M25.462 Effusion, left knee; M65.88 Other synovitis and tenosynovitis, other site; E11.9 Type 2 diabetes mellitus without complications; I10 Essential (primary) hypertension
CPT/HCPCS: 73721

== ENCOUNTER 2019-01-08 10:36 | Outpatient (CLI) | payer BC ==
--- NOTE | 2019-01-08 22:51 | Treadmill Report ---
TREADMILL STRESS TEST REPORT The patient exercised for 7 minutes of a Toñito protocol, reaching stage 3 and achieving 8 METS. Peak heart rate was 136 beats per minute. Peak blood pressure was 160/81. There was no chest pain. Test was stopped for fatigue. Baseline ECG was sinus rhythm. With exercise, there were no ST changes of ischemia. No significant dysrhythmias were noted. CONCLUSIONS: 1. Above average exercise capacity. 2. No chest pain. 3. No ST changes of ischemia. 4. No significant dysrhythmias. 5. This is a negative exercise ECG test. JOB# [id number] JAMIE/NTS
== END 2019-01-08 10:37 | disposition home or self-care (01) ==
LOC: CARD 10:36
PROVIDERS: ATTEND Internal Medicine Cardiovascular Disease
DX: I10 Essential (primary) hypertension (principal); R00.2 Palpitations; E11.9 Type 2 diabetes mellitus without complications
CPT/HCPCS: 93017

== ENCOUNTER 2019-03-08 06:09 | Outpatient (CLI) | payer BC ==
[2019-03-08 06:38] LABS: Hematocrit 35.5 % (30.3-42.9); Hemoglobin 12.2 gm/dl (10.1-14.3); Mean Corpuscular HGB Conc 34 % (30-34); Mean Corpuscular Volume 82 fl (79-97); Platelet Count 329 K/mm3 (140-440); Red Cell Distribution Width 14.6 % (13.2-15.2)
[2019-03-08 06:54] LABS: Albumin 3.8 g/dL (3.9-5); Calcium 9.4 mg/dL (8.4-10.2); Chol/HDL Ratio 4.35 %
== END 2019-03-08 06:10 | disposition home or self-care (01) ==
LOC: LAB 06:09
PROVIDERS: ATTEND Surgery
DX: Z01.818 Encounter for other preprocedural examination (principal); I10 Essential (primary) hypertension; E11.9 Type 2 diabetes mellitus without complications
CPT/HCPCS: 36415; 80053; 80061; 83036; 84443; 85027

== ENCOUNTER 2019-07-02 09:51 | Outpatient (CLI) | payer BC ==
--- NOTE | 2019-07-03 10:14 | Mammography Report ---
DIGITAL SCREENING MAMMOGRAM WITH CAD, 07/02/2019 INDICATION: Routine screening mammography. TECHNIQUE: Digital bilateral 2D mammography was obtained in the craniocaudal and mediolateral obliq ue projections. This examination was interpreted with the benefit of Computer-Aided Detection analysi s. COMPARISON: 06/07/2018 FINDINGS: Breast Density: The breasts are almost entirely fatty. There is no evidence of dominant mass, suspicious calcifications or architectural distortion in eithe r breast. IMPRESSION: No mammographic evidence of malignancy. Follow up recommendation: Routine yearly BI-RADS Category 1: Negative. A "normal" or negative report should not discourage follow up or biopsy of a clinically significant f inding. A written summary of these findings will be mailed to the patient. The patient will be entered into a mammography reporting system which will generate a reminder letter for the patient's next appointmen t at the appropriate interval. The [employer] recommends yearly mammograms starting at age 40 and continuing as l ruthy as a woman is in good health. Breast MRI is recommended for women with an approximate 20-25% or greater lifetime risk of breast cancer, including women with a strong family history of breast or ova janna cancer or who have been treated for Hodgkin's disease. Signer Name: Ananda Bedoya MD Signed: 07/03/2019 10:09 AM Workstation Name: [id number]
== END 2019-07-02 09:52 | disposition home or self-care (01) ==
LOC: MAMMO 09:51
PROVIDERS: ATTEND Internal Medicine
DX: Z12.31 Encounter for screening mammogram for malignant neoplasm of breast (principal)
CPT/HCPCS: 77067

== ENCOUNTER 2019-07-12 06:45 | Day surgery (SDC) | payer BC ==
[~2019-07-12 06:45] MED LIST: SODIUM CHLORIDE 0.9% 1000 ML 1,000 ML IV SCH
--- NOTE | 2019-07-12 08:28 | Anesthesia Consultation ---
Anesthesia Consult and Med Hx Date of service: 07/12/19 - Airway Anesthetic Teeth Evaluation: Good ROM Head & Neck: Adequate Mental/Hyoid Distance: Adequate Mallampati Class: Class I Intubation Access Assessment: Good - Pre-Operative Health Status ASA Pre-Surgery Classification: ASA3 Proposed Anesthetic Plan: MAC - Pulmonary COPD: No Hx Sleep Apnea: Yes (CPAP at night) - Cardiovascular System Hx Hypertension: Yes - Endocrine Hx End Stage Renal Disease: No Hx Liver Disease: Yes (Hyperlipidemia ) - Other Systems Hx Obesity: Yes
--- NOTE | 2019-07-12 08:29 | Anesthesia Day of Surgery ---
Anesthesia Day of Surgery - Day of Surgery Patient Examined: Yes Patient H&P Reviewed: Yes Patient is NPO: Yes Beta Blockers: Yes
--- NOTE | 2019-07-12 08:39 | Discharge Summary ---
Providers - Providers Date of Admission: 07/12/2016 Date of discharge: 07/12/19 Attending physician: LILLI CARTWRIGHT MD Primary care physician: EVANGELISTA GARCIA Hospitalization Reason for admission: pre-op egd Condition: Good Procedures: egd Hospital course: uneventful egd Disposition: DC-01 TO HOME OR SELFCARE Core Measure Documentation - Palliative Care Palliative Care/ Comfort Measures: Not Applicable - Core Measures Any of the following diagnoses?: none Exam - Physical Exam Narrative exam: unchanged from pre-op H&P - Constitutional Vitals: Temp Pulse Resp BP Pulse Ox 98.3 F 69 12 138/90 96 07/12/19 08:24 07/12/19 08:24 07/12/19 08:24 07/12/19 08:24 07/12/19 08:24 Plan Activity: no restrictions Diet: low carbohydrate Follow up with: EVANGELISTA GARCIA MD [Primary Care Provider] - 7 Days
--- NOTE | 2019-07-12 08:44 | Operative Report ---
Operative Report Operative Report: OPERATIVE REPORT - EGD DATE 07/12/2019 SURGERY: Upper endoscopy with antral biopsy SURGEON: Beth Weber M.D. [employer] SALESPERSON: n/a PRE OP DX: GERD. morbid obesity POST OP DX: GERD, morbid obesity, gastritis TYPE OF ANESTHESIA: MAC. ESTIMATED BLOOD LOSS: None. COMPLICATIONS: None. SPECIMENS REMOVED: None. FINDINGS: 1. hiatal hernia. 2. antral gastritis 2. Otherwise, normal esophagus, stomach and first portion of duodenum. INDICATIONS:INDICATION FOR PROCEDURE: Patient is a 54-year-old female with a long history of morbid obesity. She is planned to have a weight loss procedure and is here for preoperative planning EGD. PROCEDURE DETAILS: After consent was reviewed, patient was taken back to the operating room where patient was placed in the left lateral decubitus position and a bite block was placed in the mouth. After a time-out was called, MAC anesthesia was initiated. I then passed the endoscope into her oropharynx, into her esophagus, visualized the entire esophagus, which was all within normal limits. Her z-line was measured at about 38cm from the incisors. I then visualized the stomach and the first portion of the duodenum and there were no abnormalities, with the exception of antral gastritis I could clearly visualize. I then retroflexed the scope in the stomach and visualized the hiatus and I could see a hiatal hernia. A cold biopsy was taken of the antral mucosa to evaulate for h.pylori for comprehensive pre-op for bariatric surgery. I then desufflated the stomach and removed the endoscope. Patient tolerated procedure well and was transferred to recovery room in good and stable condition.
[2019-07-12] MEDS ORDERED: PROPOFOL 200 MG/20 ML VIAL IV ONE (10:04)
[2019-07-12] MEDS ORDERED: WATER FOR IRRIG STERILE 250 ML BOTTLE IR ONE (10:29)
--- NOTE | 2019-07-12 10:44 | Post Anesthesia Evaluation ---
- Post Anesthesia Evaluation Patient Participated: Yes Airway Patent: Yes Stable Respiratory Function: Yes Nausea/Vomiting: No Temp > 96.8F: Yes Pain Manageable: Yes Adequeate Hydration: Yes Anesthesia Complications: No
[2019-07-12 11:20] VITALS: BP 153/85
== END 2019-07-12 06:46 | disposition home or self-care (01) ==
LOC: GIO 06:45
PROVIDERS: ATTEND Surgery
DX: K21.9 Gastro-esophageal reflux disease without esophagitis (principal); K44.9 Diaphragmatic hernia without obstruction or gangrene; K29.50 Unspecified chronic gastritis without bleeding; E66.01 Morbid (severe) obesity due to excess calories; E11.9 Type 2 diabetes mellitus without complications; I10 Essential (primary) hypertension; E78.00 Pure hypercholesterolemia, unspecified; G47.30 Sleep apnea, unspecified; E66.9 Obesity, unspecified; E78.5 Hyperlipidemia, unspecified; Z68.41 Body mass index [BMI] 40.0-44.9, adult; Z79.899 Other long term (current) drug therapy; Z79.82 Long term (current) use of aspirin; Z87.442 Personal history of urinary calculi; Z86.73 Personal history of transient ischemic attack (TIA), and cerebral infarction without residual deficits
CPT/HCPCS: 43239; 88305; 88342; J2704; J7030

== ENCOUNTER 2019-07-25 08:39 | Day surgery (SDC) | payer BC ==
[2019-07-25] MEDS ORDERED: LIDOCAINE (1%) 10 MG/1 ML VIAL 20 ML MDV ONE (08:40)
[2019-07-25] MEDS ORDERED: BUPIVACAINE/PF (0.5%) 5 MG/1 ML 30 ML VIAL INFILTRATI ONE ×2 (08:40→11:19)
[2019-07-25 09:07] VITALS: BP 138/79
[2019-07-25] MEDS ORDERED: methylPREDNISolone ACETATE 40 MG/1 ML INJ ONE ×2 (10:37→10:57)
[2019-07-25] MEDS ORDERED: methylPREDNISolone ACETATE 40 MG/1 ML INJ INTRA-ARTI ONE (11:19)
[2019-07-25] MEDS ORDERED: LIDOCAINE (1%) 10 MG/1 ML VIAL 20 ML MDV INFILTRATI ONE (11:19)
[2019-07-25] MEDS ORDERED: KETOROLAC 30 MG/1 ML INJ ONE (11:27)
--- NOTE | 2019-07-25 14:01 | Procedure Note ---
Date of procedure: 07/25/19 Pre-op diagnosis: left knee pain Post-op diagnosis: same Procedure: Left Geniculate Nerve Block under C-arm fluroscopy procedure The patient taken to the OR suite where he was place on the table supine with padded triangular pad placed along the potileal fossa. The left knee prepped and draped in usual sterile fashion. 22-gauge spinal needle used to locate areas for injection, the medial and lateral supracondylar ridges as well as the medial border of the proximal tibia. These areas were anesthized using lidocaine 1% followed by placement of spinal needle near the medial, and lateral geniculate nerves. A mixture of marcaine and lidocaine injected into the deeper structures. There were no complications noted and he tolerated well. Anesthesia: local Surgeon: PAZ ROSE Pathology: none Condition: stable Disposition: observation
--- NOTE | 2019-07-25 16:11 | XRay Report ---
Left knee 2 views INDICATION: Left knee pain IMPRESSION: Percutaneous pins project over the expected region of the distal femur or proximal tibia. No complications appreciated Total fluoroscopy time 19 seconds. Signer Name: Lul Soni MD Signed: 07/25/2019 4:06 PM Workstation Name: [id number]
== END 2019-07-25 11:00 | disposition home or self-care (01) ==
LOC: OR 08:39
PROVIDERS: ATTEND Orthopaedic Surgery
DX: M25.562 Pain in left knee (principal); E11.9 Type 2 diabetes mellitus without complications; I10 Essential (primary) hypertension; G47.30 Sleep apnea, unspecified; E66.9 Obesity, unspecified; F32.9 Major depressive disorder, single episode, unspecified; F41.9 Anxiety disorder, unspecified; Z79.899 Other long term (current) drug therapy; Z79.82 Long term (current) use of aspirin; Z68.41 Body mass index [BMI] 40.0-44.9, adult; Z98.51 Tubal ligation status; Z87.442 Personal history of urinary calculi; Z98.890 Other specified postprocedural states; Z86.2 Personal history of diseases of the blood and blood-forming organs and certain disorders involving the immune mechanism; Z86.73 Personal history of transient ischemic attack (TIA), and cerebral infarction without residual deficits
CPT/HCPCS: 64450; 73560; J1030; J1885

== ENCOUNTER 2019-07-29 09:14 | Emergency (ER) | payer BC ==
[2019-07-29 09:43] VITALS: BP 169/86
--- NOTE | 2019-07-29 10:23 | Emergency Department Report ---
ED Extremity Problem HPI - General Chief complaint: Extremity Problem,Nontraumatic Stated complaint: L KNEE PAIN Time Seen by Provider: 07/29/19 10:21 Source: patient Mode of arrival: Ambulatory Limitations: No Limitations - History of Present Illness Initial comments: pt is a 54 yo female who presents to the ED with c/o left knee pain since September that began bothering her again a week ago. states that she saw Dr. Smith, orthopedic and received injections. she denies any fall or injury. she denies any numbness or weakness. she is ambulatory. she states that he is wanting to do an arthoscopy. she states she has been taking diclofenac without much relief. - Related Data Home Medications Medication Instructions Recorded Confirmed Last Taken Metoprolol [Lopressor TAB] 50 mg PO BID 07/12/17 07/25/19 07/25/19 Multivitamin with Folic Acid [One 1 tab PO DAILY 07/12/17 07/25/19 07/25/19 Daily Multivitamin Tablet] Furosemide [Lasix TAB] 40 mg PO PRN PRN 07/19/19 07/25/19 07/25/19 Previous Rx's Medication Instructions Recorded Last Taken Type Aspirin [Aspir-Low] 81 mg PO DAILY #30 tablet. 07/13/17 07/25/19 Rx Rosuvastatin (Nf) [Crestor] 10 mg PO QHS #30 tablet 07/13/17 07/24/19 Rx traMADoL [Ultram 50 MG tab] 50 mg PO Q6HR PRN #12 tablet 07/29/19 Unknown Rx Allergies Allergy/AdvReac Type Severity Reaction Status Date / Time No Known Allergies Allergy Verified 07/12/17 10:18 ED Review of Systems ROS: Stated complaint: L KNEE PAIN Other details as noted in HPI Comment: All other systems reviewed and negative ED Past Medical Hx - Past Medical History Previous Medical History?: Yes Hx Hypertension: Yes (OFF MEDS X 7 MONTHS PER MD ORDER) Hx Diabetes: Yes Hx Liver Disease: Yes (Hyperlipidemia ) Hx Kidney Stones: Yes Hx COPD: No Hx HIV: No - Surgical History Past Surgical History?: Yes Additional Surgical History: TUBALIGATION - Social History Smoking Status: Never Smoker - Medications Home Medications: Home Medications Medication Instructions Recorded Confirmed Last Taken Type Metoprolol [Lopressor TAB] 50 mg PO BID 07/12/17 07/25/19 07/25/19 History Multivitamin with Folic Acid [One 1 tab PO DAILY 07/12/17 07/25/19 07/25/19 History Daily Multivitamin Tablet] Aspirin [Aspir-Low] 81 mg PO DAILY #30 tablet. 07/13/17 07/25/19 07/25/19 Rx Rosuvastatin (Nf) [Crestor] 10 mg PO QHS #30 tablet 07/13/17 07/25/19 07/24/19 Rx Furosemide [Lasix TAB] 40 mg PO PRN PRN 07/19/19 07/25/19 07/25/19 History traMADoL [Ultram 50 MG tab] 50 mg PO Q6HR PRN #12 tablet 07/29/19 Unknown Rx ED Physical Exam - General Limitations: No Limitations General appearance: alert, in no apparent distress - Head Head exam: Present: atraumatic, normocephalic - Eye Eye exam: Present: normal appearance - ENT ENT exam: Present: mucous membranes moist - Extremities Exam Extremities exam: Present: other (TTP over the left medial knee, no obvious edema, no deformity, no joint laxity, two small areas of ecchymosis from prior procedure to the left superior knee, no erythema, no increased warmth, no drainage, FROM of the left knee, neurovasculalry intact) - Neurological Exam Neurological exam: Present: alert, oriented X3 - Psychiatric Psychiatric exam: Present: normal affect, normal mood - Skin Skin exam: Present: warm, dry, intact ED Course Vital Signs 07/29/19 09:41 Temperature 98.0 F Pulse Rate 72 Respiratory 16 Rate Blood Pressure 169/86 O2 Sat by Pulse 98 Oximetry ED Medical Decision Making - Medical Decision Making pt is a 54 yo female who presents to the ED with c/o left knee pain since September that began bothering her again a week ago. states that she saw Dr. Smith, orthopedic and received injections. she denies any fall or injury. she denies any numbness or weakness. she is ambulatory. she states that he is wanting to do an arthoscopy. she states she has been taking diclofenac without much relief. VSS. on exam: TTP over the left medial knee, no obvious edema, no d eformity, no joint laxity, two small areas of ecchymosis from prior procedure to the left superior knee, no erythema, no increased warmth, no drainage, FROM of the left knee, neurovasculalry intact. No signs of cellulitis, no septic joint, patient has had no acute trauma. will give patient prescription for short course of tramadol to control her pain until she is able to follow back up with her orthopedic doctor. advised pt to please take medication as prescribed as needed. do not drive or operate heavy machinery while taking pain medication. may use ice for 15 minutes a time, rest, elevation of the leg. return to the emergency room for any new or worsening symptoms Critical care attestation.: If time is entered above; I have spent that time in minutes in the direct care of this critically ill patient, excluding procedure time. ED Disposition Clinical Impression: Left knee pain Qualifiers: Chronicity: acute Qualified Code(s): M25.562 - Pain in left knee Disposition: TO HOME OR SELFCARE Is pt being admited?: No Does the pt Need Aspirin: No Condition: Stable Instructions: Arthralgia (ED), RICE Therapy (ED) Additional Instructions: please take medication as prescribed as needed. do not drive or operate heavy machinery while taking pain medication. may use ice for 15 minutes a time, rest, elevation of the leg. return to the emergency room for any new or worsening symptoms Prescriptions: traMADoL [Ultram 50 MG tab] 50 mg PO Q6HR PRN #12 tablet PRN Reason: Pain , Severe (7-10) Referrals: PAZ SMITH MD [Staff Physician] - 2-3 Days Time of Disposition: 10:31 Print Language: OMANI
== END 2019-07-29 10:45 | disposition home or self-care (01) ==
LOC: ED 09:14
DX: M25.562 Pain in left knee (principal); I10 Essential (primary) hypertension; E11.9 Type 2 diabetes mellitus without complications; Z98.51 Tubal ligation status; Z79.899 Other long term (current) drug therapy
CPT/HCPCS: 99281

== ENCOUNTER 2019-08-22 11:08 | Day surgery (SDC) | payer BC ==
[~2019-08-22 11:08] MED LIST changes: -SODIUM CHLORIDE 0.9% 1000 ML 1,000 ML IV SCH; +ceFAZolin/Water 2 GM/20 ML 2 GM/20 ML SYRINGE IV NR
--- NOTE | 2019-08-22 11:49 | Anesthesia Consultation ---
Anesthesia Consult and Med Hx Date of service: 08/22/19 - Airway Anesthetic Teeth Evaluation: Good ROM Head & Neck: Adequate Mental/Hyoid Distance: Adequate Mallampati Class: Class II Intubation Access Assessment: Probably Good - Pulmonary Exam CTA: Yes - Cardiac Exam Cardiac Exam: RRR - Pre-Operative Health Status ASA Pre-Surgery Classification: ASA3 Proposed Anesthetic Plan: General - Pulmonary Hx Smoking: No Hx Respiratory Symptoms: No Hx Sleep Apnea: Yes - Cardiovascular System Hx Hypertension: Yes Hx Heart Attack/AMI: No (neg ST and normal TTE 09/2017) Hx Percutaneous Transluminal Coronary Angioplasty (PTCA): No Hx Cardia Arrhythmia: Yes (occasional PVCs) Hx Pacemaker: No Hx Internal Defibrillator: No - Central Nervous System CVA: No - Gastrointestinal Hx Gastroesophageal Reflux Disease: No - Endocrine Hx End Stage Renal Disease: No (hx ARF w/ HD in 2005; now resolved) Hx Liver Disease: No Hx Non-Insulin Dependent Diabetes: Yes Hx Thyroid Disease: No - Other Systems Hx Obesity: Yes (BMI 42.6) - Additional Comments Anesthesia Medical History Comments: Hx mild PONV. Will give home dose metoprolol.
--- NOTE | 2019-08-22 11:49 | Anesthesia Day of Surgery ---
Anesthesia Day of Surgery - Day of Surgery Patient Examined: Yes Patient H&P Reviewed: Yes Patient is NPO: Yes Beta Blockers: Yes
[2019-08-22] MEDS ORDERED: LACTATED RINGERS 1,000 ML IV SCH (12:00)
[2019-08-22] MEDS ORDERED: GABAPENTIN 300 MG CAP PO SCH (12:00)
[2019-08-22] MEDS ORDERED: CELECOXIB 200 MG CAP PO SCH (12:00)
[2019-08-22] MEDS ORDERED: SCOPOLAMINE TRANSDERMAL PATCH 72 HR TD NR (12:00)
[2019-08-22] MEDS: MIDAZOLAM 2 MG/2 ML INJ IV PRN ×2 (12:03→13:24)
[2019-08-22] MEDS ORDERED: METOPROLOL TARTRATE 50 MG TAB PO ONE (13:00)
[2019-08-22] MEDS ORDERED: methylPREDNISolone ACETATE 40 MG/1 ML INJ ONE ×2 (13:21→14:55)
[2019-08-22] MEDS ORDERED: BUPIVACAINE-EPINEPHRINE/PF 0.5%-1:200,000 (10 ML) VIAL INFILTRATI ONE ×2 (13:21→14:55)
[2019-08-22] MEDS ORDERED: LIDOCAINE MPF (2%) 20 MG/1 ML VIAL 5 ML ONE (14:00)
[2019-08-22] MEDS ORDERED: fentaNYL 100 MCG/2 ML INJ ONE ×2 (14:00→14:44)
[2019-08-22] MEDS ORDERED: PROPOFOL 200 MG/20 ML VIAL IV ONE (14:00)
[2019-08-22] MEDS ORDERED: ONDANSETRON 4 MG/2 ML INJ ONE ×2 (14:41→16:17)
[2019-08-22] MEDS ORDERED: dexAMETHasone 20 MG/5 ML VIAL ONE (14:42)
[2019-08-22] MEDS ORDERED: methylPREDNISolone ACETATE 80 MG/1 ML INJ INTRA-ARTI ONE (14:55)
--- NOTE | 2019-08-22 15:17 | Procedure Note ---
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 A timeout procedure was done to identify the patient and the correct operative site. 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 The arthroscopic shaver was introduced into the knee joint nexy the articular cartilage was then debrided back to healthy-appearing cartilage tissue followed by debridement of the posterior horn of the medial meniscus using a combination of biting forceps and the 4.0 shaver again care was taken to remove only tissue did appear to flap in and out of the knee joint following debridement the knee was copiously irrigated with saline solution the arthroscope was removed and the stab wound were repaired A mixture of Depo-Medrol and Marcaine was injected followed by placing routine postoperative dressings and Lewis wraps to the thigh in the area the patient tolerated the procedure there were no complications he was sent to postanesthesia recovery in stable condition Anesthesia: GETA Surgeon: PAZ ROSE Director Long Term Care: MARGARETH HATCH Estimated blood loss: minimal Pathology: none Condition: stable Disposition: PACU
[2019-08-22] MEDS ORDERED: ONDANSETRON 4 MG/2 ML INJ IV ONE (16:13)
[2019-08-22] MEDS ORDERED: HYDROcodone/ACETAMINOPHEN 5-325 MG TAB PO ONE (16:15)
[2019-08-22 16:34] VITALS: BP 142/75
[2019-08-22] MEDS ORDERED: PROMETHAZINE 25 MG RECT SUPP PR PRN (16:57)
[2019-08-22] MEDS ORDERED: PROMETHAZINE 25 MG RECT SUPP PR ONE (16:59)
--- NOTE | 2019-08-22 17:22 | Post Anesthesia Evaluation ---
- Post Anesthesia Evaluation Patient Participated: Yes Airway Patent: Yes Stable Respiratory Function: Yes Nausea/Vomiting: Yes (received antiemetics) Temp > 96.8F: Yes Pain Manageable: Yes Adequeate Hydration: Yes Anesthesia Complications: No
== END 2019-08-22 17:20 | disposition home or self-care (01) ==
LOC: OR 11:08
PROVIDERS: ATTEND Orthopaedic Surgery
DX: S83.242A Other tear of medial meniscus, current injury, left knee, initial encounter (principal); E11.9 Type 2 diabetes mellitus without complications; I10 Essential (primary) hypertension; E78.00 Pure hypercholesterolemia, unspecified; G47.30 Sleep apnea, unspecified; E66.9 Obesity, unspecified; F32.9 Major depressive disorder, single episode, unspecified; F41.9 Anxiety disorder, unspecified; M94.262 Chondromalacia, left knee; M17.12 Unilateral primary osteoarthritis, left knee; Z79.899 Other long term (current) drug therapy; Z79.82 Long term (current) use of aspirin; Z68.41 Body mass index [BMI] 40.0-44.9, adult; Z98.51 Tubal ligation status; Z90.710 Acquired absence of both cervix and uterus; Z87.442 Personal history of urinary calculi; Z86.2 Personal history of diseases of the blood and blood-forming organs and certain disorders involving the immune mechanism; Z86.73 Personal history of transient ischemic attack (TIA), and cerebral infarction without residual deficits; X58.XXXA Exposure to other specified factors, initial encounter; Y93.89 Activity, other specified; Y92.89 Other specified places as the place of occurrence of the external cause; Y99.8 Other external cause status
CPT/HCPCS: 29881; 82803; 82962; J0690; J1030; J1040; J1100; J2250; J2405; J2704; J3010; J7120

== ENCOUNTER 2019-09-11 09:42 | Outpatient (CLI) | payer BC ==
[2019-09-11 10:15] LABS: Hematocrit 35.4 % (30.3-42.9); Hemoglobin 12.2 gm/dl (10.1-14.3); Mean Corpuscular HGB Conc 35 % (30-34); Mean Corpuscular Volume 80 fl (79-97); Platelet Count 313 K/mm3 (140-440); Red Blood Count 4.44 M/mm3 (3.65-5.03); Red Cell Distribution Width 16.8 % (13.2-15.2)
[2019-09-11 10:35] LABS: Alanine Aminotransferase 16 units/L (7-56); Albumin 3.5 g/dL (3.9-5); BUN/Creatinine Ratio 16; Blood Urea Nitrogen 11 mg/dL (7-17); Calcium 9.4 mg/dL (8.4-10.2); Chol/HDL Ratio 3.46 %; HDL Cholesterol 60 mg/dL (40-59); Hemolysis Index 0; LDL Cholesterol,Direct 144 mg/dL (50-130)
[2019-09-14 13:27] LABS: Vitamin D, 25-OH, D2 15 ng/mL
== END 2019-09-11 09:43 | disposition home or self-care (01) ==
LOC: LAB 09:42
PROVIDERS: ATTEND Obstetrics & Gynecology
DX: Z13.0 Encounter for screening for diseases of the blood and blood-forming organs and certain disorders involving the immune mechanism (principal); Z13.1 Encounter for screening for diabetes mellitus
CPT/HCPCS: 36415; 80053; 80061; 82306; 83036; 84443; 85027

== ENCOUNTER 2020-05-20 05:58 | Outpatient (CLI) | payer BC ==
--- NOTE | 2020-05-20 11:06 | Fluoroscopy Report ---
UPPER GI HISTORY: FUNCTIONAL DYSPEPSIA. TECHNIQUE: Single and double contrast barium technique utilized to evaluate the esophagus, stomach, and duodenal C-loop. FINDINGS: To begin the exam, swallowing was evaluated in the lateral position under direct fluorosco py. Swallowing was normal. No mucosal irregularity, mass, mass effect, or critical stenosis. There were no abnormal tertiary c ontractions as seen with dysmotility. No gastroesophageal reflux or hiatal hernia. IMPRESSION: Normal upper GI series. Fluoroscopic time: 1.8 minutes Number of fluoroscopic images: 12 Signer Name: Dez Romero Jr, MD Signed: 05/20/2020 11:01 AM Workstation Name: [id number]
== END 2020-05-20 05:59 | disposition home or self-care (01) ==
LOC: FLUORO 05:58
PROVIDERS: ATTEND Surgery
DX: K30 Functional dyspepsia (principal)
CPT/HCPCS: 74246

== ENCOUNTER 2020-06-01 12:12 | Outpatient (CLI) | payer BC | END 2020-06-01 12:13 | disposition home or self-care (01) | LOC: XRAY 12:12 | PROVIDERS: ATTEND Surgery | DX: E66.2 Morbid (severe) obesity with alveolar hypoventilation (principal) | CPT/HCPCS: 94010 ==

== ENCOUNTER 2020-06-02 08:51 | Outpatient (CLI) | payer BC ==
[2020-06-02] MEDS ORDERED: REGADENOSON 0.4 MG/5 ML INJ IV ONE (10:58)
[2020-06-03 08:16] VITALS: BP 153/83
--- NOTE | 2020-06-08 16:50 | Treadmill Report ---
THALLIUM STRESS TEST LEFT VENTRICLE: Left ventricular chamber size is within normal spread. Perfusion study demonstrates mild breast attenuation artifact, otherwise homogeneous uptake of the tracer in all segments, no defects identified. Gated analysis demonstrates normal left ventricular systolic function, ejection fraction calculated at greater than 70%. CONCLUSION: Normal myocardial perfusion study. JOB# [id number] CA/NTS
== END 2020-06-02 08:52 | disposition home or self-care (01) ==
LOC: ECHO 08:51
PROVIDERS: ATTEND Internal Medicine Cardiovascular Disease
DX: Z01.810 Encounter for preprocedural cardiovascular examination (principal); I07.1 Rheumatic tricuspid insufficiency
CPT/HCPCS: 78452; 93017; 93306; A9502; J2785

== ENCOUNTER 2020-06-19 08:50 | Outpatient (CLI) | payer BC ==
[2020-06-19 11:53] LABS: Basophils # (Auto) 0.1 K/mm3 (0.0-0.1); Basophils % (Auto) 0.8 % (0.0-1.8); Eosinophils # (Auto) 0.5 K/mm3 (0.0-0.4); Eosinophils % (Auto) 5.1 % (0.0-4.3); Hematocrit 34.2 % (30.3-42.9); Hemoglobin 11.9 gm/dl (10.1-14.3); Lymphocytes # (Auto) 3.4 K/mm3 (1.2-5.4); Lymphocytes % (Auto) 38.1 % (13.4-35.0); Mean Corpuscular HGB Conc 35 % (30-34); Mean Corpuscular Volume 82 fl (79-97); Monocytes # (Auto) 0.7 K/mm3 (0.0-0.8); Monocytes % (Auto) 7.5 % (0.0-7.3); Platelet Count 321 K/mm3 (140-440); Red Blood Count 4.16 M/mm3 (3.65-5.03); Red Cell Distribution Width 14.5 % (13.2-15.2)
[2020-06-19 12:01] LABS: INR 0.99 (0.87-1.13)
[2020-06-19 12:02] LABS: Partial Thromboplastin Time 29.7 Sec. (24.2-36.6)
[2020-06-19 12:39] LABS: Alanine Aminotransferase 18 units/L (7-56); Albumin 3.6 g/dL (3.9-5); BUN/Creatinine Ratio 14; Blood Urea Nitrogen 13 mg/dL (7-17); Calcium 9.2 mg/dL (8.4-10.2); Hemolysis Index 5
== END 2020-06-19 08:51 | disposition home or self-care (01) ==
LOC: LAB 08:50
PROVIDERS: ATTEND Internal Medicine
DX: Z01.810 Encounter for preprocedural cardiovascular examination (principal)
CPT/HCPCS: 36415; 80053; 85025; 85610; 85730

== ENCOUNTER 2020-06-26 10:10 | Outpatient (CLI) | payer BC ==
--- NOTE | 2020-06-26 18:33 | Ultrasound Report ---
ULTRASOUND ABDOMEN, COMPLETE INDICATION: R74.8 AGN LIVELS OF SERUM ENZYMES. COMPARISON: No relevant prior imaging study available. FINDINGS: Pancreas: No significant abnormality. Abdominal Aorta: No significant abnormality. IVC: No significant abnormality. Liver: Diffusely heterogeneous in echotexture. Gallbladder: No significant abnormality. Bile ducts: No significant abnormality. Common bile duct measures 3 mm. Kidneys: Right: No significant abnormality. Left: Incompletely visualized from overlying bowel ga s. There appears to be at least mild dilatation of the left renal pelvis Spleen: No significant abnormality. Free fluid: None. Additional Findings: None. IMPRESSION: Diffusely heterogeneous liver echotexture. This could be secondary to cirrhosis or possibly underlyin g fatty liver. No discrete focal hepatic lesion is identified. Recommend CT of the abdomen with IV co ntrast for further evaluation. Mild dilatation of the left renal pelvis. Signer Name: Lul Soni MD Signed: 06/26/2020 6:29 PM Workstation Name: [id number]
== END 2020-06-26 10:11 | disposition home or self-care (01) ==
LOC: US 10:10
PROVIDERS: ATTEND Internal Medicine
DX: R74.8 Abnormal levels of other serum enzymes (principal)
CPT/HCPCS: 76700

== ENCOUNTER 2020-07-10 12:45 | Outpatient (CLI) | payer BC ==
--- NOTE | 2020-07-10 15:11 | Mammography Report ---
DIGITAL SCREENING MAMMOGRAM WITH CAD, 07/10/2020 INDICATION: Routine screening mammography. TECHNIQUE: Digital bilateral 2D mammography was obtained in the craniocaudal and mediolateral obliq ue projections. This examination was interpreted with the benefit of Computer-Aided Detection analysi s. COMPARISON: 07/02/2019. FINDINGS: Breast Density: The breasts are almost entirely fatty. There is no evidence of dominant mass, suspicious calcifications or architectural distortion in the l eft breast. New 4 mm nodule inferior and medial right breast. Ultrasound is recommended with possible spot compression views. IMPRESSION: Follow up recommendation: Ultrasound BI-RADS Category 0: Incomplete. Needs additional imaging evaluation and/or prior mammograms for amanda rison. A "normal" or negative report should not discourage follow up or biopsy of a clinically significant f inding. A written summary of these findings will be mailed to the patient. The patient will be entered into a mammography reporting system which will generate a reminder letter for the patient's next appointmen t at the appropriate interval. The [employer] recommends yearly mammograms starting at age 40 and continuing as l ruthy as a woman is in good health. Breast MRI is recommended for women with an approximate 20-25% or greater lifetime risk of breast cancer, including women with a strong family history of breast or ova janna cancer or who have been treated for Hodgkin's disease. Signer Name: Jonas Brennan MD Signed: 07/10/2020 3:06 PM Workstation Name: [id number]
== END 2020-07-10 12:46 | disposition home or self-care (01) ==
LOC: MAMMO 12:45
PROVIDERS: ATTEND Internal Medicine
DX: Z12.31 Encounter for screening mammogram for malignant neoplasm of breast (principal); N64.89 Other specified disorders of breast
CPT/HCPCS: 77067

== ENCOUNTER 2020-07-13 09:00 | Inpatient (IN) | payer BC ==
--- NOTE | 2020-07-06 11:04 | Anesthesia Consultation ---
Anesthesia Consult and Med Hx Date of service: 07/13/20 - Airway Anesthetic Teeth Evaluation: Good ROM Head & Neck: Adequate Mental/Hyoid Distance: Adequate Mallampati Class: Class II Intubation Access Assessment: Good - Pre-Operative Health Status ASA Pre-Surgery Classification: ASA3 Proposed Anesthetic Plan: General - Pulmonary Hx Respiratory Symptoms: No (+2FS) Hx Sleep Apnea: Yes - Cardiovascular System Hx Hypertension: Yes Hx Cardia Arrhythmia: Yes (occasional PVCs) - Central Nervous System CVA: No Hx Psychiatric Problems: No - Gastrointestinal Hx Gastroesophageal Reflux Disease: No - Endocrine Hx Renal Disease: Yes (JOSE 16 years ago-resolved) Hx Liver Disease: Yes (Fatty liver) Hx Non-Insulin Dependent Diabetes: Yes Hx Thyroid Disease: No - Hematic Hx Sickle Cell Disease: No - Other Systems Hx Cancer: No Hx Obesity: Yes (BMI 42.6) - Additional Comments Anesthesia Medical History Comments: Pt states she got cardiac clearance. No records available at this time.
[2020-07-06 12:32] LABS: Basophils # (Auto) 0.1 K/mm3 (0.0-0.1); Eosinophils # (Auto) 0.3 K/mm3 (0.0-0.4); Eosinophils % (Auto) 2.8 % (0.0-4.3); Hematocrit 38.9 % (30.3-42.9); Hemoglobin 13.2 gm/dl (10.1-14.3); Lymphocytes # (Auto) 2.9 K/mm3 (1.2-5.4); Lymphocytes % (Auto) 25.8 % (13.4-35.0); Mean Corpuscular HGB Conc 34 % (30-34); Mean Corpuscular Volume 83 fl (79-97); Monocytes # (Auto) 0.5 K/mm3 (0.0-0.8); Monocytes % (Auto) 4.9 % (0.0-7.3); Platelet Count 365 K/mm3 (140-440); Red Blood Count 4.72 M/mm3 (3.65-5.03); Red Cell Distribution Width 14.3 % (13.2-15.2)
[2020-07-06 12:51] LABS: BUN/Creatinine Ratio 18; Blood Urea Nitrogen 18 mg/dL (7-17); Calcium 10.1 mg/dL (8.4-10.2); Hemolysis Index 9
[~2020-07-13 09:00] MED LIST changes: +ENOXAPARIN 40 MG/0.4 ML INJ SUB-Q NR; +metroNIDAZOLE/NS 500 MG/100 ML 500 MG/100 ML BAG IV NR
[2020-07-13] MEDS ORDERED: MIDAZOLAM 2 MG/2 ML INJ IV ONE (09:16)
--- NOTE | 2020-07-13 09:20 | Anesthesia Day of Surgery ---
Anesthesia Day of Surgery - Day of Surgery Patient Examined: Yes Patient H&P Reviewed: Yes Patient is NPO: Yes
[2020-07-13] MEDS ORDERED: ONDANSETRON 4 MG/2 ML INJ IV PRN ×2 (09:21→10:48)
[2020-07-13] MEDS ORDERED: fentaNYL 100 MCG/2 ML INJ IV PRN (09:21)
[2020-07-13] MEDS: SCOPOLAMINE TRANSDERMAL PATCH 72 HR TD SCH (09:30)
[2020-07-13] MEDS: LACTATED RINGERS 1,000 ML IV SCH (09:45)
[2020-07-13] MEDS ORDERED: LIDOCAINE (1%) 10 MG/1 ML VIAL 20 ML MDV ONE (10:39)
[2020-07-13] MEDS ORDERED: BUPIVACAINE/PF (0.25%) 2.5 MG/ML 30 ML VIAL INFILTRATI ONE ×2 (10:39→12:12)
[2020-07-13] MEDS ORDERED: SIMETHICONE 80 MG CHEW TAB PO PRN (10:48)
[2020-07-13] MEDS ORDERED: ONDANSETRON 4 MG/2 ML INJ ONE (10:53)
[2020-07-13] MEDS ORDERED: ROCURONIUM 50 MG/5 ML INJ IV ONE ×2 (10:53→13:00)
[2020-07-13] MEDS ORDERED: dexAMETHasone 20 MG/5 ML VIAL ONE (10:53)
[2020-07-13] MEDS ORDERED: LIDOCAINE MPF (2%) 20 MG/1 ML VIAL 5 ML ONE (10:53)
[2020-07-13] MEDS ORDERED: propofoL 200 MG/20 ML VIAL IV ONE (10:53)
[2020-07-13] MEDS ORDERED: hydrALAZINE 20 MG/1 ML INJ IV PRN (11:00)
[2020-07-13] MEDS ORDERED: METOCLOPRAMIDE 10 MG/2 ML INJ IV PRN (11:00)
[2020-07-13] MEDS ORDERED: LACTATED RINGERS 1,000 ML IV SCH (11:00)
[2020-07-13] MEDS ORDERED: MORPHINE 2 MG/1 ML INJ IV PRN (11:00)
[2020-07-13] MEDS ORDERED: HYDROmorphone 1 MG/1 ML INJ IV PRN (11:00)
[2020-07-13] MEDS ORDERED: HYDROcodone/APAP 7.5-325MG-15ML ORAL LIQD PO PRN (11:00)
[2020-07-13] MEDS ORDERED: KETOROLAC 30 MG/1 ML INJ ONE (11:25)
[2020-07-13] MEDS ORDERED: KETAMINE/STERILE WATER 50 MG/ML SYRINGE ONE (11:25)
[2020-07-13] MEDS ORDERED: LIDOCAINE (1%) 10 MG/1 ML VIAL 20 ML MDV INFILTRATI ONE ×2 (12:12)
[2020-07-13] MEDS ORDERED: NEOSTIGMINE 10MG/10 ML INJ MDV ONE (12:44)
[2020-07-13] MEDS ORDERED: GLYCOPYRROLATE 0.4 MG/2 ML INJ ONE (12:44)
[2020-07-13] MEDS ORDERED: SODIUM CHLORIDE 0.9% IRRIG SOLN 2000 ML IR ONE (13:05)
--- NOTE | 2020-07-13 13:19 | Operative Report ---
Operative Report Operative Report: DATE: 07/13/2020 Surgeon: Beth Weber MD Chief Development Officer surgeon: Matias Meyer CSA Pre-op Dx: morbid obesity, HTN, hiatal hernia Post-op Dx: same as pre-op Procedure: 1. laparoscopic sleeve gastrectomy, 2. hiatal hernia repair Anesthesia: GETA EBL: <10ml Specimen: gastric remnant Complication: none immediate Indication: 55 year old female with a history of morbid obesity . Pt is here for sleeve gastrectomy for weight loss to achieve healthier weight and improve or resolve his co-morbidities. She expressed understanding of the risks and benefits. PROCEDURE IN DETAIL: After consent was reviewed, patient was taken back to the operating room, where patient was placed supine on the bed with both arms out. The patient's legs were doubly strapped to the bed. Patient had a foot board in place. Patient had a body warmer placed by anesthesia. General anesthesia was induced with successful endotracheal intubation. Patient was then prepped and draped in normal sterile surgical fashion. After a time-out was called, I made a stab incision in the left subcostal area and placed a Veress needle through this incision and insufflated the abdomen to 18 mmHg pressure. I then counted down a handsbreadth below the xiphoid process in the midline and slightly left lateral injected local anesthetic and made about 1 cm transverse incision. I then used a 5-mm Optiview trocar to enter into the abdomen. There was no gross injury to any intra-abdominal structures. I then placed a 30-degree scope through this port and inspected the abdomen. I then placed a 5-mm port in the right upper quadrant, and 1 epigastric area below the costovertebral angle. I then placed a 15-mm port about a handsbreadth in the right mid abdomen. After which a 5mm port was placed in left upper quadrant port along the anterior axillary line in a similar fashion. A liver retractor was placed to the epigastric port to elevate the left lateral lobe and liver. There was a small hiatal hernia appreciated that was accentuated with right and left crural dissection. Hiatal hernia sac was dissected from the crura until the GE junction was resting about 2cm below the level of the diaphragm without tension. An anterior crura-plasty was preformed a U-stitch using surgidac suture. The anterior gastric fat pad was excised. Starting approximately 6 cm proximal to the pylorus, using a LigaSure device the short gastrics were taken all the way to the left yvonne. Once the lateral portion of the stomach was mobile anesthesia passed a 40 [place] bougie along the medial aspect to act as a stent. Using serial firings of endoscopic stapler to gold, followed by 4 blue, the lateral portion of the stomach was transected making sure to did not close to the 2 cm to the incisura. All staple loads were supported with Ethicon buttress strips. The sleeve stomach was seen to be without kink obstruction or twisting. The pressure was decreased to 10 mmHg. The staple line was inspected for approximately 5 minutes. There was no significant bleeding appreciated except for a slight loose at the most distal portion of the staple line. Bleeding was minimal and easily controlled with minimal cautery. Tisseel was then sprayed along the entirety of the staple line. The liver retractor was removed. This was after the gastric remnant was grasped and pulled into the 15 mm trocar site. The stomach was extracted via the 15 mm trocar site. After the fascia had to be stretched with a Amy clamp to easily remove the stomach, the fascia was closed using a rosario refugio device at the level of the fascia with an 0 PDS. trocars were removed under direct visualization. All skin incisions were closed with 4-0 Monocryl followed by Dermabond. Patient was awoken, extubated, and taken to recovery stable condition. All counts were correct.
[2020-07-13] MEDS ORDERED: ONDANSETRON 4 MG/2 ML INJ IV ONE (15:00)
[2020-07-13] MEDS ORDERED: ONDANSETRON 4 MG/2 ML INJ IV NR (16:00)
[2020-07-13] MEDS: metroNIDAZOLE/NS 500 MG/100 ML 500 MG/100 ML BAG IV SCH ×2 (17:08→22:28)
[2020-07-13] MEDS: KETOROLAC 30 MG/1 ML INJ IV SCH ×2 (17:12→22:29)
[2020-07-13] MEDS: ceFAZolin/NS 1 GM/50 ML 1 GM/50 ML BAG IV SCH ×2 (17:43→22:31)
[2020-07-13] MEDS: METOPROLOL TARTRATE 50 MG TAB PO SCH (22:30)
[2020-07-14] MEDS: LACTATED RINGERS 1,000 ML IV SCH ×2 (00:35→11:19)
[2020-07-14] MEDS: KETOROLAC 30 MG/1 ML INJ IV SCH ×5 (05:10→22:04)
[2020-07-14] MEDS: metroNIDAZOLE/NS 500 MG/100 ML 500 MG/100 ML BAG IV SCH (05:58)
[2020-07-14 06:26] LABS: Hematocrit 36.6 % (30.3-42.9); Hemoglobin 12.2 gm/dl (10.1-14.3); Mean Corpuscular HGB Conc 33 % (30-34); Mean Corpuscular Volume 83 fl (79-97); Platelet Count 341 K/mm3 (140-440); Red Blood Count 4.39 M/mm3 (3.65-5.03); Red Cell Distribution Width 14.3 % (13.2-15.2)
[2020-07-14 06:28] LABS: Basophils % (Auto) 0.2 % (0.0-1.8); Lymphocytes # (Auto) 1.4 K/mm3 (1.2-5.4); Lymphocytes % (Auto) 7.5 % (13.4-35.0); Monocytes # (Auto) 0.5 K/mm3 (0.0-0.8); Monocytes % (Auto) 2.8 % (0.0-7.3)
[2020-07-14 06:47] LABS: Alanine Aminotransferase 26 units/L (7-56); Albumin 3.6 g/dL (3.9-5); BUN/Creatinine Ratio 11; Blood Urea Nitrogen 10 mg/dL (7-17); Calcium 9.9 mg/dL (8.4-10.2); Hemolysis Index 9
--- NOTE | 2020-07-14 09:40 | Progress Note ---
Assessment and Plan POD#1 s/p lap sleeve gastrectomy with hiatal hernia repair. Afebrile and stable with post op reactive leukocytosis which is commonly seen in sleeve gastrectomy post op. No clinical signs of leak or bleeding at this time. will recheck labs in am, encourage regular ambulation and clear liquids. Subjective Date of service: 07/14/20 Patient Reports: Positive: feels better, pain is less, tolerating liquids well (no acute events overnight. pt says that she is not having any pain with no n/v.) Objective Vital Signs - 12hr 07/13/20 07/13/20 07/13/20 22:29 22:30 22:41 Temperature Pulse Rate 97 H Respiratory 20 Rate Blood Pressure 157/88 O2 Sat by Pulse 100 Oximetry 07/13/20 07/14/20 07/14/20 23:15 06:24 06:27 Temperature 98.3 F 98.4 F Pulse Rate 101 H 76 Respiratory 18 18 Rate Blood Pressure 180/94 170/92 172/94 O2 Sat by Pulse 97 98 Oximetry 07/14/20 08:06 Temperature 98.2 F Pulse Rate 65 Respiratory 18 Rate Blood Pressure 142/76 O2 Sat by Pulse 96 Oximetry - General physical appearance well developed, well nourished - Respiratory normal expansion, normal respiratory effort - Abdomen soft, other (incisions c/d/i, appropriatley tender to palpation) - Labs 07/14/20 05:53 07/14/20 05:53 Diabetes panel 07/14/20 Range/Units 05:53 Sodium 137 (137-145) mmol/L Potassium 4.5 (3.6-5.0) mmol/L Chloride 102.1 (98-107) mmol/L Carbon Dioxide 23 (22-30) mmol/L BUN 10 (7-17) mg/dL Creatinine 0.9 (0.6-1.2) mg/dL Glucose 131 H (65-100) mg/dL Calcium 9.9 (8.4-10.2) mg/dL AST 38 (5-40) units/L ALT 26 (7-56) units/L Alkaline Phosphatase 202 H (35-129) units/L Total Protein 8.0 (6.3-8.2) g/dL Albumin 3.6 L (3.9-5) g/dL Calcium panel 07/14/20 Range/Units 05:53 Calcium 9.9 (8.4-10.2) mg/dL Albumin 3.6 L (3.9-5) g/dL Pituitary panel 07/14/20 Range/Units 05:53 Sodium 137 (137-145) mmol/L Potassium 4.5 (3.6-5.0) mmol/L Chloride 102.1 (98-107) mmol/L Carbon Dioxide 23 (22-30) mmol/L BUN 10 (7-17) mg/dL Creatinine 0.9 (0.6-1.2) mg/dL Glucose 131 H (65-100) mg/dL Calcium 9.9 (8.4-10.2) mg/dL Adrenal panel 07/14/20 Range/Units 05:53 Sodium 137 (137-145) mmol/L Potassium 4.5 (3.6-5.0) mmol/L Chloride 102.1 (98-107) mmol/L Carbon Dioxide 23 (22-30) mmol/L BUN 10 (7-17) mg/dL Creatinine 0.9 (0.6-1.2) mg/dL Glucose 131 H (65-100) mg/dL Calcium 9.9 (8.4-10.2) mg/dL Total Bilirubin 0.30 (0.1-1.2) mg/dL AST 38 (5-40) units/L ALT 26 (7-56) units/L Alkaline Phosphatase 202 H (35-129) units/L Total Protein 8.0 (6.3-8.2) g/dL Albumin 3.6 L (3.9-5) g/dL
[2020-07-14] MEDS: METOPROLOL TARTRATE 50 MG TAB PO SCH ×2 (09:52→22:04)
[2020-07-14] MEDS: ENOXAPARIN 40 MG/0.4 ML INJ SUB-Q SCH (09:52)
[2020-07-14] MEDS: LOSARTAN 50 MG TAB PO SCH (09:52)
[2020-07-14] MEDS ORDERED: TELMISARTAN 40 MG PO SCH (10:00)
[2020-07-15] MEDS: LACTATED RINGERS 1,000 ML IV SCH (01:57)
[2020-07-15] MEDS: KETOROLAC 30 MG/1 ML INJ IV SCH (05:06)
[2020-07-15 07:07] LABS: Alanine Aminotransferase 22 units/L (7-56); Albumin 2.9 g/dL (3.9-5); BUN/Creatinine Ratio 16; Basophils % (Auto) 0.2 % (0.0-1.8); Blood Urea Nitrogen 14 mg/dL (7-17); Calcium 9.5 mg/dL (8.4-10.2); Eosinophils % (Auto) 0.1 % (0.0-4.3); Hematocrit 42.8 % (30.3-42.9); Hemoglobin 14.4 gm/dl (10.1-14.3); Hemolysis Index 18; Lymphocytes # (Auto) 2.2 K/mm3 (1.2-5.4); Mean Corpuscular HGB Conc 34 % (30-34); Mean Corpuscular Volume 82 fl (79-97); Monocytes # (Auto) 0.7 K/mm3 (0.0-0.8); Platelet Count 218 K/mm3 (140-440); Red Blood Count 5.19 M/mm3 (3.65-5.03); Red Cell Distribution Width 14.5 % (13.2-15.2)
[2020-07-15] MEDS: LOSARTAN 50 MG TAB PO SCH (08:59)
[2020-07-15] MEDS: METOPROLOL TARTRATE 50 MG TAB PO SCH (08:59)
[2020-07-15] MEDS: ENOXAPARIN 40 MG/0.4 ML INJ SUB-Q SCH (09:00)
--- NOTE | 2020-07-15 09:35 | Discharge Summary ---
Providers - Providers Date of Admission: 07/13/20 09:00 Date of discharge: 07/15/20 Attending physician: LILLI CARTWRIGHT MD 07/13/20 10:48 Physical Therapy Evaluation and Treat [CONS] Routine Comment: Reason For Exam: post op bariatric surgery please eval Primary care physician: ELVIRA PATEL Hospitalization Reason for admission: s/p lap sleeve gastrecomy with hiatal hernia repair Condition: Good Procedures: gastric sleeve with hiatal hernia repair Hospital course: Pt was admitted after a non eventful laparoscopic gastric sleeve with hiatal hernia repair. She did well post op with normal vital signs, normal labs with the exception of decreasing post-op leukocytosis, was tolerating clear liquids and ambulating without difficulty. She was discharged to home with no clinical signs of leak or bleeding. Of note the pathology of her gastric remnant came back positive for H. pylori. She was informed and the treatment medications will be called into her pharmacy. Disposition: DC-01 TO HOME OR SELFCARE Core Measure Documentation - Palliative Care Palliative Care/ Comfort Measures: Not Applicable - Core Measures Any of the following diagnoses?: none Exam - Constitutional Vitals: Temp Pulse Resp BP Pulse Ox 98.8 F 70 20 158/96 98 07/15/20 08:27 07/15/20 08:59 07/15/20 08:27 07/15/20 08:59 07/15/20 08:27 General appearance: Present: no acute distress - Respiratory Respiratory effort: normal - Extremities Extremities: no ischemia - Abdominal General gastrointestinal: Present: soft, other (incisions c/d/i, appropriately tender to palpation). Absent: distended, rigid, normal bowel sounds Plan Activity: advance as tolerated Diet: clear liquids Wound: open to air Additional Instructions: follow up for post op in two weeks. may shower no heavy lifting Follow up with: ELVIRA PATEL MD [Primary Care Provider] - 7 Days
[2020-07-15 13:00] VITALS: BP 137/69
[2020-07-15] MEDS: SCOPOLAMINE TRANSDERMAL PATCH 72 HR TD SCH (13:45)
== END 2020-07-15 00:05 | disposition home or self-care (01) | DRG 621 ==
LOC: 3A 09:00 → 3B-SURG 14:25 → 3B 21:02
PROVIDERS: ADMIT Surgery; ATTEND Surgery
PROC: 0DB64Z3 Excision of Stomach, Percutaneous Endoscopic Approach, Vertical (ICD-10-PCS; principal; 2020-07-13)
PROC: 0BQT4ZZ Repair Diaphragm, Percutaneous Endoscopic Approach (ICD-10-PCS; 2020-07-13)
DX: E66.01 Morbid (severe) obesity due to excess calories (principal); Z68.41 Body mass index [BMI] 40.0-44.9, adult; Z20.828 Contact with and (suspected) exposure to other viral communicable diseases; I10 Essential (primary) hypertension; G47.33 Obstructive sleep apnea (adult) (pediatric); M17.12 Unilateral primary osteoarthritis, left knee; K30 Functional dyspepsia; E78.00 Pure hypercholesterolemia, unspecified; Z83.3 Family history of diabetes mellitus; Z80.3 Family history of malignant neoplasm of breast; Z82.5 Family history of asthma and other chronic lower respiratory diseases
CPT/HCPCS: 36415; 80048; 80053; 82962; 85025; 88307; 88342; 94760; G0378; A4217; C9250; J0690; J1100; J1650; J1885; J2250; J2405; J2704; J2710; J3490; J7120; U0003

== ENCOUNTER 2020-08-19 08:49 | Outpatient (CLI) | payer BC ==
[2020-08-19 09:36] LABS: Basophils # (Auto) 0.1 K/mm3 (0.0-0.1); Basophils % (Auto) 0.8 % (0.0-1.8); Eosinophils # (Auto) 0.2 K/mm3 (0.0-0.4); Eosinophils % (Auto) 2.7 % (0.0-4.3); Hematocrit 40.3 % (30.3-42.9); Hemoglobin 13.6 gm/dl (10.1-14.3); Lymphocytes # (Auto) 2.6 K/mm3 (1.2-5.4); Lymphocytes % (Auto) 34.2 % (13.4-35.0); Mean Corpuscular HGB Conc 34 % (30-34); Mean Corpuscular Volume 83 fl (79-97); Monocytes # (Auto) 0.6 K/mm3 (0.0-0.8); Monocytes % (Auto) 8.5 % (0.0-7.3); Platelet Count 309 K/mm3 (140-440); Red Blood Count 4.83 M/mm3 (3.65-5.03); Red Cell Distribution Width 14.3 % (13.2-15.2)
[2020-08-19 10:00] LABS: % Iron Saturation 27.57 %; Alanine Aminotransferase 39 units/L (7-56); BUN/Creatinine Ratio 11; Blood Urea Nitrogen 11 mg/dL (7-17); Chol/HDL Ratio 4.32 %; HDL Cholesterol 50 mg/dL (40-59); Hemolysis Index 3; Iron 59 ug/dL (37-170); LDL Cholesterol,Direct 154 mg/dL (50-130); Total Iron Binding Capacity 214 mcg/dL (250-450)
== END 2020-08-19 08:50 | disposition home or self-care (01) ==
LOC: LAB 08:49
PROVIDERS: ATTEND Surgery
DX: E66.01 Morbid (severe) obesity due to excess calories (principal); K30 Functional dyspepsia; E11.9 Type 2 diabetes mellitus without complications; Z98.84 Bariatric surgery status
CPT/HCPCS: 36415; 80053; 80061; 82306; 82607; 82728; 83036; 83550; 84425; 84443; 85025

== ENCOUNTER 2020-09-02 06:14 | Outpatient (CLI) | payer BC ==
--- NOTE | 2020-09-02 15:03 | Ultrasound Report ---
ULTRASOUND BREAST RIGHT LIMITED, 09/02/2020 CLINICAL INFORMATION / INDICATION: ABNORMAL MAMMOGRAM. Patient presents as a callback from screening mammogram for further evaluation of a nodular density in the right breast. TECHNIQUE: Targeted ultrasound evaluation was performed of the area of interest. COMPARISON: Prior mammogram 07/10/2020 FINDINGS: Corresponding with the nodular density seen on recent mammogram, there is a hypoechoic oval mass with slightly indistinct margins in the right breast 3:00 position located 10 cm from the nipple measurin g up to 7 x 3 x 7 mm. The mass is parallel. No internal vascularity is demonstrated. IMPRESSION: 1. A small hypoechoic nodule in the 3:00 right breast corresponds with the nodular density seen on re cent mammogram. This is considered low suspicion for malignancy. However, because it represents a new mammographic finding, ultrasound-guided biopsy is recommended. Follow up recommendation: Biopsy BI-RADS Category 4: Suspicious for Malignancy. A normal or "negative" report should not preclude biopsy or follow-up of a clinically suspicious find ing. Signer Name: Philomena Aguila MD Signed: 09/02/2020 2:58 PM Workstation Name: [id number]
== END 2020-09-02 06:15 | disposition home or self-care (01) ==
LOC: US 06:14
PROVIDERS: ATTEND Internal Medicine
DX: N63.12 Unspecified lump in the right breast, upper inner quadrant (principal)

== ENCOUNTER 2020-09-16 13:28 | Outpatient (CLI) | payer BC ==
--- NOTE | 2020-09-16 14:28 | Ultrasound Report ---
ULTRASOUND BREAST RIGHT LIMITED, 09/16/2020 CLINICAL INFORMATION / INDICATION: History of right breast mass. The patient presents for ultrasound- guided biopsy of right breast mass at the 3:00 position. TECHNIQUE: Targeted ultrasound evaluation was performed of the area of interest. COMPARISON: Right breast ultrasound, 09/02/2020. Screening mammogram, 07/10/2020 FINDINGS: Despite extensive sonographic evaluation, the subtle hypoechoic 7 mm nodule at the 3:00 position 10 c m from the nipple was not able to be reproduced for biopsy. There is no evidence of suspicious solid mass or shadowing. IMPRESSION: The subtle hypoechoic mass at the 3:00 position was unable to be reproduced for biopsy. T his finding most likely represented either a small intramammary lymph node or a subtle area of fibroc ystic change. Given the benign sonographic appearance and benign appearance of the recent mammogram, a six-month follow-up right mammogram and ultrasound is suggested to confirm stability. Findings and recommendations were discussed with the patient at the time of her visit. Follow up recommendation: Short term follow up in 6 months. BI-RADS Category 3: Probably Benign. Followup in 6 months. A normal or "negative" report should not preclude biopsy or follow-up of a clinically suspicious find ing. Signer Name: Alta Valadez MD Signed: 09/16/2020 2:23 PM Workstation Name: [id number]
== END 2020-09-16 13:29 | disposition home or self-care (01) ==
LOC: SPVWC 13:28
PROVIDERS: ATTEND Surgery
DX: N63.12 Unspecified lump in the right breast, upper inner quadrant (principal)

== ENCOUNTER 2020-10-14 13:41 | Outpatient (CLI) | payer BC ==
--- NOTE | 2020-10-14 15:25 | Magnetic Resonance Report ---
Bilateral breast MR without and with contrast. History: Patient at high risk for breast malignancy based upon family history. Abnormal right breast mammogram and ultrasound. Recently identified right breast lesion at the 3:00 position which was not reproducible the day of biopsy. Comparison: 09/02/2020, 07/10/2020, 07/02/2019, 06/07/2018 Technique: Multiplanar multisequence MR images of the breast were obtained before and after the intra venous administration of intravenous contrast. Post processing analysis and review was performed on a separate computer workstation. Findings: Breast composition is predominantly fatty density. There is minimal background parenchymal enhancemen t within both breasts. No suspicious enhancing mass, dominant focus, or other abnormal enhancement is identified within eith er breast. Specifically, no abnormal enhancement within the right breast at the 3:00 position (site o f previously identified finding). A 3 mm focal area of enhancement in the left lower inner breast is stable compared to multiple prior mammograms. Long-term stability would support a benign etiology. No abnormal axillary or internal mammary lymph nodes. Impression: No evidence of breast malignancy. Specifically, no abnormal findings within the right breast at the 3 :00 position (site of previously identified finding which was not reproducible the day of biopsy). BIRADS 2: Benign A normal MRI does not exclude the presence of some forms of breast malignancy as literature reports s uggest that some forms of ductal carcinoma in situ or lobular carcinoma, particularly, may not be det ected on MRI. The sensitivity and specificity of MRI for cancers under 5 mm may be reduced. MRI does not replace the recommendation for annual conventional mammographic evaluation and should be used as an adjunct to mammography and physical examination as necessary. Signer Name: Regino Malone MD Signed: 10/14/2020 3:21 PM Workstation Name: [id number]
== END 2020-10-14 13:42 | disposition home or self-care (01) ==
LOC: SPVIMAG 13:41
PROVIDERS: ATTEND Surgery
DX: R92.2 Inconclusive mammogram (principal); Z80.3 Family history of malignant neoplasm of breast
CPT/HCPCS: A9575; C8908; 77049

== ENCOUNTER 2021-01-20 06:29 | Outpatient (CLI) | payer BC ==
[2021-01-20 07:13] LABS: Basophils # (Auto) 0.1 K/mm3 (0.0-0.1); Basophils % (Auto) 0.8 % (0.0-1.8); Eosinophils # (Auto) 0.2 K/mm3 (0.0-0.4); Eosinophils % (Auto) 1.7 % (0.0-4.3); Hematocrit 38.7 % (30.3-42.9); Hemoglobin 13.3 gm/dl (10.1-14.3); Lymphocytes % (Auto) 32.7 % (13.4-35.0); Mean Corpuscular HGB Conc 34 % (30-34); Mean Corpuscular Volume 83 fl (79-97); Monocytes # (Auto) 0.5 K/mm3 (0.0-0.8); Monocytes % (Auto) 5.2 % (0.0-7.3); Platelet Count 337 K/mm3 (140-440); Red Blood Count 4.67 M/mm3 (3.65-5.03); Red Cell Distribution Width 13.7 % (13.2-15.2)
[2021-01-20 07:28] LABS: Alanine Aminotransferase 17 units/L (7-56); Albumin 4.2 g/dL (3.9-5); BUN/Creatinine Ratio 14; Blood Urea Nitrogen 11 mg/dL (7-17); Calcium 9.9 mg/dL (8.4-10.2); Chol/HDL Ratio 3.83 %; HDL Cholesterol 56 mg/dL (40-59); Hemolysis Index 0; LDL Cholesterol,Direct 165 mg/dL (50-130)
== END 2021-01-20 06:30 | disposition home or self-care (01) ==
LOC: LAB 06:29
PROVIDERS: ATTEND Internal Medicine
DX: I10 Essential (primary) hypertension (principal); E78.2 Mixed hyperlipidemia; R94.5 Abnormal results of liver function studies
CPT/HCPCS: 36415; 80053; 80061; 85025

== ENCOUNTER 2021-02-03 06:18 | Outpatient (CLI) | payer BC ==
--- NOTE | 2021-02-03 09:27 | Cat Scan Report ---
CT ABDOMEN AND PELVIS WITH CONTRAST INDICATION / CLINICAL INFORMATION: Unspecified abdominal pain, abnormal liver function studies. TECHNIQUE: Axial CT images were obtained through the abdomen and pelvis after 100 cc Omnipaque [address] scans at this location are performed using CT dose reduction for ALARA by means of automated exposure control. COMPARISON: Complete abdominal ultrasound from 06/26/2020. FINDINGS: LOWER CHEST: No significant abnormality. LIVER: There is generalized steatosis without other significant abnormalities. GALLBLADDER: No significant abnormality. BILE DUCTS: No significant abnormality. PANCREAS: No significant abnormality. SPLEEN: No significant abnormality. ADRENALS: No significant abnormality. RIGHT KIDNEY / URETER: There is moderate right renal cortical thinning without other significant abno rmalities. LEFT KIDNEY / URETER: There is moderate left renal cortical thinning with a simple appearing subcenti meter midpole cyst and no other significant abnormalities. STOMACH / SMALL BOWEL: Unremarkable postoperative changes are seen along the stomach without signific ant abnormalities of the stomach or small bowel. COLON: No significant abnormality. APPENDIX: No significant abnormality. PERITONEUM: No free fluid. No free air. No fluid collection. LYMPH NODES: No significant adenopathy. AORTA / ARTERIES: There is mild aortic atherosclerosis without other significant abnormalities. IVC / VEINS: No significant abnormality. URINARY BLADDER: No significant abnormality. REPRODUCTIVE ORGANS: Nonspecific generalized heterogeneity is seen along the uterus, possibly seconda ry to fibroids. No significant adnexal abnormality. ADDITIONAL FINDINGS: None. SKELETAL SYSTEM: No acute findings. Mild degenerative changes are seen along the spine. IMPRESSION: 1. Hepatic steatosis without other significant abnormalities of the liver. 2. Additional findings as above. Signer Name: Prince Sharma MD Signed: 02/03/2021 9:23 AM Workstation Name: [id number]
== END 2021-02-03 06:19 | disposition home or self-care (01) ==
LOC: CT 06:18
PROVIDERS: ATTEND Internal Medicine
DX: K76.0 Fatty (change of) liver, not elsewhere classified (principal); I70.0 Atherosclerosis of aorta; M47.819 Spondylosis without myelopathy or radiculopathy, site unspecified
CPT/HCPCS: 74177; Q9967

== ENCOUNTER 2021-03-03 11:21 | Outpatient (CLI) | payer BC ==
[2021-03-03 12:29] LABS: % Iron Saturation 21.8 %; Calcium 9.4 mg/dL (8.4-10.2)
[2021-03-06 12:32] LABS: Vitamin D, 25-OH, D2 7 ng/mL
== END 2021-03-03 11:22 | disposition home or self-care (01) ==
LOC: LAB 11:21
PROVIDERS: ATTEND Internal Medicine
DX: E66.01 Morbid (severe) obesity due to excess calories (principal); E55.9 Vitamin D deficiency, unspecified; K30 Functional dyspepsia; K90.9 Intestinal malabsorption, unspecified; Z98.84 Bariatric surgery status
CPT/HCPCS: 36415; 82306; 82310; 82607; 82728; 83550; 83970; 84425

== ENCOUNTER 2021-03-25 09:35 | Outpatient (CLI) | payer BC ==
--- NOTE | 2021-03-25 10:15 | Mammography Report ---
DIGITAL DIAGNOSTIC MAMMOGRAM WITH CAD CONVENTIONAL, 03/25/2021 CLINICAL INFORMATION / INDICATION: Follow up nodule TECHNIQUE: Digital right mammographic imaging was performed. This examination was interpreted with the benefit of Computer-aided Detection analysis. COMPARISON: Screening mammography 07/10/2020, 07/02/2019 FINDINGS: Breast Density: The breasts are almost entirely fatty. The small nodule seen on study in 2019 is no longer visible. No other changes are seen. IMPRESSION: No mammographic evidence of malignancy. Follow up recommendation: Routine BI-RADS Category 1: Negative. A "normal" or negative report should not discourage follow up or biopsy of a clinically significant f inding. A written summary of these findings will be mailed to the patient. The patient will be entered into a mammography reporting system which will generate a reminder letter for the patient's next appointmen t at the appropriate interval. According to the [employer], yearly mammograms are recommended starting at age 40 and continuing as long as a woman is in good health. Breast MRI is recommended for women with an timothy roximately 20-25% or greater lifetime risk of breast cancer, including women with a strong family his tory of breast or ovarian cancer and women who have been treated for Hodgkin's disease. Signer Name: Carlo Pantoja MD Signed: 03/25/2021 10:11 AM Workstation Name: [id number]
== END 2021-03-25 09:36 | disposition home or self-care (01) ==
LOC: SPVWC 09:35
PROVIDERS: ATTEND Surgery
DX: R92.8 Other abnormal and inconclusive findings on diagnostic imaging of breast (principal)

== ENCOUNTER 2021-07-06 09:34 | Outpatient (CLI) | payer BC ==
--- NOTE | 2021-07-06 10:59 | XRay Report ---
RIGHT FOOT HISTORY: Pain, calcaneal spur. COMPARISON: None. TECHNIQUE: 3 views of the right foot were obtained. FINDINGS: Bones: No acute fracture or dislocation. Moderate size plantar calcaneal spur. Joint spaces: Maintained. Soft tissues: No significant abnormality. Additional findings: None. IMPRESSION: Right foot without evidence of acute osseous injury. Moderate size plantar calcaneal spur. Signer Name: Regino Malone MD Signed: 07/06/2021 10:55 AM Workstation Name: [id number]
== END 2021-07-06 09:35 | disposition home or self-care (01) ==
LOC: XRAY 09:34
PROVIDERS: ATTEND Orthopaedic Surgery
DX: M77.31 Calcaneal spur, right foot (principal)

== ENCOUNTER 2021-09-08 12:59 | Outpatient (CLI) | payer BC ==
[2021-09-08 14:17] LABS: Free T4 (Free Thyroxine) 1.2 ng/dL (0.76-1.46)
== END 2021-09-08 13:00 | disposition home or self-care (01) ==
LOC: LAB 12:59
PROVIDERS: ATTEND Internal Medicine Gastroenterology
DX: K59.04 Chronic idiopathic constipation (principal)
CPT/HCPCS: 36415; 84439; 84443

== ENCOUNTER 2021-09-14 06:22 | Day surgery (SDC) | payer BC ==
[2021-09-14] MEDS ORDERED: SODIUM CHLORIDE 0.9% 1000 ML 1,000 ML IV SCH (07:00)
--- NOTE | 2021-09-14 07:37 | Anesthesia Consultation ---
Anesthesia Consult and Med Hx Date of service: 09/14/21 - Airway Anesthetic Teeth Evaluation: Good ROM Head & Neck: Adequate Mental/Hyoid Distance: Adequate Mallampati Class: Class I Intubation Access Assessment: Good - Pulmonary Exam CTA: Yes - Cardiac Exam Cardiac Exam: RRR - Pre-Operative Health Status ASA Pre-Surgery Classification: ASA2 Proposed Anesthetic Plan: MAC - Pulmonary Hx Smoking: No Hx Respiratory Symptoms: No (+2FS) Hx Sleep Apnea: Yes (Does not use CPAP) - Cardiovascular System Hx Hypertension: Yes Hx Cardia Arrhythmia: Yes (occasional PVCs) - Central Nervous System Hx Seizures: No Hx Psychiatric Problems: No - Gastrointestinal Hx Gastroesophageal Reflux Disease: No - Endocrine Hx Renal Disease: Yes (JOSE 16 years ago-resolved) Hx Non-Insulin Dependent Diabetes: No Hx Thyroid Disease: No - Other Systems Hx Cancer: No
--- NOTE | 2021-09-14 07:37 | Anesthesia Day of Surgery ---
Anesthesia Day of Surgery - Day of Surgery Patient Examined: Yes Patient H&P Reviewed: Yes Patient is NPO: Yes
[2021-09-14] MEDS ORDERED: LIDOCAINE MPF (2%) 20 MG/1 ML VIAL 5 ML ONE (07:39)
[2021-09-14] MEDS ORDERED: propofoL 200 MG/20 ML VIAL IV ONE ×2 (07:39→07:40)
[2021-09-14] MEDS ORDERED: GLYCOPYRROLATE 0.4 MG/2 ML INJ ONE (08:32)
--- NOTE | 2021-09-14 08:36 | Short Stay Summary ---
Short Stay Documentation Date of service: 09/14/21 - History H&P: obtained from office - Allergies and Medications Current Medications: Allergies No Known Allergies Allergy (Verified 09/13/21 11:14) Home Medications Medication Instructions Recorded Confirmed Last Taken Type Metoprolol [Lopressor TAB] 50 mg PO BID 07/12/17 09/13/21 07/12/20 History Aspirin [Aspir-Low] 81 mg PO DAILY #30 tablet. 07/13/17 09/13/21 09/06/21 Rx Active Medications Sodium Chloride (Nacl 0.9% 1000 Ml) 1,000 mls @ 50 mls/hr IV DIRECT ALEX - Brief post op/procedure progress note Date of procedure: 09/14/21 Findings: see dictation Estimated blood loss: none Pathology: none Condition: stable - Disposition Condition at discharge: Good Disposition: 01 HOME / SELF CARE / HOMELESS - Discharge Diagnoses (1) Constipation Status: Acute Short Stay Discharge Plan Activity: other (no driving for 24 hours) Weight Bearing Status: Weight Bear as Tolerated Diet: regular Follow up with: ELVIRA PATEL MD [Primary Care Provider] - 7 Days
--- NOTE | 2021-09-14 08:37 | Operative Report ---
Operative Report Operative Report: Date of procedure: 09/14/2021 Preprocedure diagnosis: Severe constipation, change in bowel habits (primary kwabena son for procedure). History of colon polyps. Post procedure diagnosis: Normal study Procedure: Colonoscopy to the cecum Endoscopist: Dr. Baker Anesthesia: Monitored anesthesia care per anesthesia department Estimated blood loss: 0 Medications: Monitored anesthesia care. See separate report by anesthesia for details. After careful discussion of the nature and purpose of the procedure as well as details of the technique risks benefits and alternatives the patient gave consent. Please see recent history and physical from the office. The patient was placed in the left lateral decubitus position and medicated per anesthesia. A rectal exam was performed sphincter tone was normal there were no masses palpable. The [employer] 570 scope was passed transanally and advanced under continuous direct vision without difficulty to the cecum. The colon was well prepared. The cecum was normal. The ascending colon was normal and on forward and retroflexed views. The transverse colon, descending colon, and sigmoid colon were normal. The rectum was normal on forward and retroflexed views. The procedure was well-tolerated overall and the patient was observed in recovery. Conclusions: Normal colonoscopy to the cecum. Plan: Repeat colonoscopy 7 to 10 years. Further therapy of constipation. Consideration of anorectal manometry if not improving. Signed electronically: Victoriano Baker M.D.
[2021-09-14 16:02] VITALS: BP 156/75
--- NOTE | 2021-09-14 23:43 | Post Anesthesia Evaluation ---
- Post Anesthesia Evaluation Patient Participated: Yes Airway Patent: Yes Stable Respiratory Function: Yes Nausea/Vomiting: No Temp > 96.8F: Yes Pain Manageable: Yes Adequeate Hydration: Yes Anesthesia Complications: No Block Receding Appropriately: Not Applicable Patient on Ventilator: No
== END 2021-09-14 09:30 | disposition home or self-care (01) ==
LOC: GIO 06:22
PROVIDERS: ATTEND Internal Medicine Gastroenterology
DX: K59.00 Constipation, unspecified (principal); Z20.822 Contact with and (suspected) exposure to COVID-19; E11.9 Type 2 diabetes mellitus without complications; I10 Essential (primary) hypertension; I42.9 Cardiomyopathy, unspecified; M19.90 Unspecified osteoarthritis, unspecified site; E78.00 Pure hypercholesterolemia, unspecified; G47.30 Sleep apnea, unspecified; Z98.51 Tubal ligation status; Z79.899 Other long term (current) drug therapy; Z87.442 Personal history of urinary calculi; Z79.82 Long term (current) use of aspirin; Z86.010 Personal history of colon polyps; Z86.73 Personal history of transient ischemic attack (TIA), and cerebral infarction without residual deficits
CPT/HCPCS: 45378; J1815; J2704; J3490; J7030; U0003; J7120; Q0162

== ENCOUNTER 2021-10-15 07:52 | Outpatient (CLI) | payer BC ==
--- NOTE | 2021-10-19 09:05 | Mammography Report ---
DIGITAL SCREENING MAMMOGRAM WITH CAD, 10/15/2021 CLINICAL INFORMATION / INDICATION: Routine screening mammography. Z12.31 TECHNIQUE: Digital bilateral 2D mammography was obtained in the craniocaudal and mediolateral obliqu e projections. This examination was interpreted with the benefit of Computer-Aided Detection analysis . COMPARISON: 03/25/2021, 07/10/2020, 07/02/2019 FINDINGS: Breast Density: The breasts are almost entirely fatty. No dominant mass, suspicious calcifications, or architectural distortion in either breast. There has been no significant interval change. IMPRESSION: No mammographic evidence of malignancy. Follow up recommendation: Routine yearly BI-RADS Category 1: NEGATIVE A "normal" or negative report should not discourage follow up or biopsy of a clinically significant f inding. A written summary of these findings will be mailed to the patient. The patient will be entered into a mammography reporting system which will generate a reminder letter for the patient's next appointmen t at the appropriate interval. The [employer] recommends yearly mammograms starting at age 40 and continuing as l ruthy as a woman is in good health. Breast MRI is recommended for women with an approximate 20-25% or greater lifetime risk of breast cancer, including women with a strong family history of breast or ova janna cancer or who have been treated for Hodgkin's disease. Signer Name: Prince Sharma MD Signed: 10/19/2021 9:01 AM Workstation Name: [employer]
== END 2021-10-15 07:53 | disposition home or self-care (01) ==
LOC: MAMMO 07:52
PROVIDERS: ATTEND Obstetrics & Gynecology
DX: Z12.31 Encounter for screening mammogram for malignant neoplasm of breast (principal)
CPT/HCPCS: 77067

== ENCOUNTER 2021-11-24 09:27 | Outpatient (CLI) | payer BC ==
--- NOTE | 2021-11-24 10:53 | XRay Report ---
Left knee-3 views INDICATION: M25.562 PAIN IN LEFT KNEE. COMPARISON: None available. IMPRESSION: No acute osseous abnormality. Normal alignment. 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 Soft tissues are unremarkable. Signer Name: Jake Esposito MD Signed: 11/24/2021 10:42 AM Workstation Name: [id number]
== END 2021-11-24 09:28 | disposition home or self-care (01) ==
LOC: XRAY 09:27
PROVIDERS: ATTEND Orthopaedic Surgery
DX: M17.12 Unilateral primary osteoarthritis, left knee (principal)